=== PATIENT | male | born 1970 | race Caucasian/White ===

== ENCOUNTER 2017-09-02 10:19 | Emergency (ER) | payer BC, SELFPAY ==
[2017-09-02 10:56] LABS: Absolute Lymphocytes (CBC) 2.2 K/uL (0.7-4.9); Absolute Monocytes 0.7 K/uL (0.1-1.3); Absolute Neutrophil 6.1 K/uL (1.8-8.0); Basophils % 0.7 % (0-1.3); Eosinophils % 1.3 % (0-4.4); Hematocrit 47.7 % (39.6-49.0); Lymphocytes % 23.9 % (15.3-44.8); MCH 30.4 pg (27.0-35.0); MCV 87.3 fL (80-100); MPV 9.6 fL (7.6-11.3); Monocytes % 7.2 % (3.3-12.3); RBC Red Blood Cell Count 5.47 M/uL (4.33-5.43)
[2017-09-02] MEDS ORDERED: ASPIRIN 81 MG CHEWABLE TABLET ONE (11:02)
[2017-09-02] MEDS ORDERED: ONDANSETRON 4 MG/2 ML VIAL ONE (11:02)
[2017-09-02] MEDS ORDERED: MORPHINE 4 MG/ML SYR ONE (11:02)
[2017-09-02] MEDS ORDERED: NA CHLORIDE 0.9% 500 ML ONE ×2 (11:02→12:53)
[2017-09-02 11:03] LABS: Protime INR 0.97
--- NOTE | 2017-09-02 11:09 | RAD REPORT ---
EXAM DESCRIPTION: RAD - Chest Single View - 09/02/2017 10:53 am CLINICAL HISTORY: Chest pain. COMPARISON: None. FINDINGS: Portable technique limits examination quality. The lungs are grossly clear. The heart is mildly prominent size. No displaced fractures. IMPRESSION: No acute intrathoracic process suspected.
[2017-09-02 11:14] LABS: Potassium 3.8 mEq/L (3.6-5.0)
[2017-09-02 11:20] LABS: Albumin 4.6 g/dL (3.2-5.5); Bilirubin Direct 0.1 mg/dL (0-0.2); Magnesium 1.9 mg/dL (1.8-2.5)
[2017-09-02 11:23] LABS: CKMB Creatine Kinase MB 0.8 ng/ml (0.3-4.0)
--- NOTE | 2017-09-02 11:24 | EKG ---
Test Date: 2017-09-02 Test Time: 10:41:04 Steel Turner: DK MEASUREMENT RESULTS: Intervals: Rate: 53 KS: 158 QRSD: 110 QT: 408 QTc: 382 [place]: P: 45 KS: 158 QRS: 58 T: 65 INTERPRETIVE STATEMENTS: Sinus bradycardia with sinus arrhythmia Otherwise normal ECG Compared to ECG 01/24/2007 18:01:11 Sinus tachycardia no longer present Electronically Signed On 09-02-17 11:23:57 CDT by Damian Echeverria
--- NOTE | 2017-09-02 15:14 | EDPHYS ---
Physician Documentation [facility] Name: Scott Wells Age: 47 yrs Sex: Male : 1970 Arrival Date: 09/02/2017 Time: 10:22 Bed 17 Private MD: ED Philippe Christiansen HPI: 09/02 10:57 This 47 yrs old Male presents to ER via Ambulatory with complaints of Chest cp Pain. 10:57 The patient or guardian reports chest pain that is located primarily in the anterior cp chest wall, left. Onset: 2 day(s) ago. 10:57 The pain radiates to the left arm. Associated signs and symptoms: Pertinent negatives: cp abdominal pain, cough, diaphoresis, dizziness, headache, lower extremity pain, lower extremity swelling, palpitations, shortness of breath, syncope, vomiting. 10:57 The chest pain is described as squeezing. cp 10:57 Duration: The patient or guardian reports a single episode, that is still ongoing. cp Modifying factors: The symptoms are alleviated by nothing. the symptoms are aggravated by nothing. Historical: - Allergies: 10:27 Keflex; lk1 10:27 PENICILLINS; lk1 - Home Meds: 10:56 lisinopril 40 mg Oral tab 1 tab once daily [Active]; carvedilol 12.5 mg oral tab 1 tab jl7 2 times per day [Active]; - PMHx: 10:27 Hypertension; lk1 - PSHx: 10:27 Cholecystectomy; left hand; lymph node removed; lk1 - Immunization history:: Adult Immunizations up to date. - Social history:: Smoking status: Patient/guardian denies using tobacco. ROS: 11:00 Constitutional: Negative for body aches, chills, fever, poor PO intake. cp 11:00 Eyes: Negative for injury, pain, redness, and discharge, ENT: Negative for injury, cp pain, and discharge, Neck: Negative for injury, pain, and swelling. 11:00 Cardiovascular: Positive for chest pain, Negative for edema, palpitations. 11:00 Respiratory: Negative for cough, pleurisy, shortness of breath, wheezing. 11:00 Abdomen/GI: Negative for abdominal pain, nausea, vomiting, and diarrhea, constipation, anorexia, black/tarry stool, rectal bleeding. 11:00 Back: Negative for pain at rest, pain with movement, radiated pain. 11:00 Skin: Negative for cellulitis, rash. 11:00 Neuro: Negative for altered mental status, headache, loss of consciousness, syncope, near syncope, weakness. Exam: 10:45 ECG was reviewed by the Attending Physician. cp 11:05 Constitutional: The patient appears in no acute distress, alert, awake, cp non-diaphoretic, non-toxic, well developed, well nourished. 11:05 Head/Face: Normocephalic, atraumatic. Eyes: Pupils equal round and reactive to light, cp extra-ocular motions intact. Lids and lashes normal. Conjunctiva and sclera are non-icteric and not injected. Cornea within normal limits. Periorbital areas with no swelling, redness, or edema. ENT: Nares patent. No nasal discharge, no septal abnormalities noted. Tympanic membranes are normal and external auditory canals are clear. Oropharynx with no redness, swelling, or masses, exudates, or evidence of obstruction, uvula midline. Mucous membranes moist. Neck: Trachea midline, no thyromegaly or masses palpated, and no cervical lymphadenopathy. Supple, full range of motion without nuchal rigidity, or vertebral point tenderness. No Meningismus. Chest/axilla: Normal chest wall appearance and motion. Nontender with no deformity. No lesions are appreciated. 11:05 Cardiovascular: Rate: bradycardic, Rhythm: regular, Pulses: Pulses are 2+ in right radial artery and left radial artery. Heart sounds: murmur, not appreciated, Edema: is not appreciated, JVD: is not appreciated. 11:05 Respiratory: the patient does not display signs of respiratory distress, Respirations: normal, no use of accessory muscles, no retractions, no splinting, no tachypnea, labored breathing, is not present, Breath sounds: are clear throughout, no decreased breath sounds, no stridor, no wheezing. 11:05 Abdomen/GI: Inspection: obese Bowel sounds: active, all quadrants, Palpation: abdomen is soft and non-tender, in all quadrants, rebound tenderness, is not appreciated, voluntary guarding, is not appreciated, involuntary guarding, is not appreciated. 11:05 Back: pain, is absent, ROM is normal. 11:05 Skin: cellulitis, is not appreciated, no rash present. 11:05 Neuro: Orientation: to person, place \T\ time. Mentation: lucid, able to follow commands, Cerebellar function: is grossly normal, Motor: moves all fours, strength is normal, Sensation: no obvious gross deficits. 14:05 ECG was reviewed by the Attending Physician. cp Vital Signs: 10:28 BP 162 / 92; Pulse 55; Resp 15; Temp 98.0(O); Pulse Ox 96% on R/A; Weight 102.06 kg lk1 (M); Height 5 ft. 9 in. (175.26 cm) (R); Pain 7/10; 10:40 BP 188 / 97; Pulse 54; Resp 14 S; Pulse Ox 99% on R/A; Pain 7/10; jl7 11:09 BP 174 / 101 LA; dh3 11:09 BP 165 / 96 RA; dh3 11:34 BP 157 / 90; Pulse 48; Resp 16; Pulse Ox 96% on R/A; ae1 12:04 BP 157 / 99; Pulse 46; Resp 12 S; Pulse Ox 99% on R/A; jl7 12:43 BP 141 / 94; Pulse 46; Resp 13; Pulse Ox 99% on R/A; ap3 13:38 BP 159 / 101; Pulse 47; Resp 11; Pulse Ox 99% on R/A; ap3 15:03 BP 140 / 93; Pulse 63; Resp 16; Pulse Ox 99% on R/A; ae1 10:28 Body Mass Index 33.23 (102.06 kg, 175.26 cm) lk1 MDM: 10:33 Patient medically screened. cp 09/02 10:38 Order name: Basic Metabolic Panel; Complete Time: 11:24 cp 09/02 11:24 Interpretation: Normal except: GFR 76. cp 09/02 10:38 Order name: BNP; Complete Time: 11:24 cp 09/02 10:38 Order name: CBC with Diff; Complete Time: 11:24 cp 09/02 12:17 Interpretation: Normal except: RBC 5.47. cp 09/02 10:38 Order name: Ckmb; Complete Time: 11:24 cp 09/02 10:38 Order name: CPK; Complete Time: 11:24 cp 09/02 10:38 Order name: LFT's; Complete Time: 11:24 cp 09/02 11:24 Interpretation: Normal except: SGPT 62; ALK 38. cp 09/02 10:38 Order name: Magnesium; Complete Time: 11:24 cp 09/02 10:38 Order name: PT-INR; Complete Time: 11:24 cp 09/02 10:38 Order name: Ptt, Activated; Complete Time: 11:24 cp 09/02 10:38 Order name: Troponin (emerg Dept Use Only); Complete Time: 11:24 cp 09/02 12:18 Interpretation: Reviewed. cp 09/02 10:38 Order name: XRAY Chest (1 view); Complete Time: 11:24 cp 09/02 14:30 Interpretation: Report review. cp 09/02 11:26 Order name: D-Dimer; Complete Time: 11:55 cp 09/02 11:55 Interpretation: Reviewed. cp 09/02 13:06 Order name: Urine Dipstick--Ancillary (enter results) bd 09/02 13:44 Order name: Troponin I; Complete Time: 15:00 cp 09/02 15:00 Interpretation: Reviewed. cp 09/02 10:38 Order name: EKG; Complete Time: 10:39 cp 09/02 10:38 Order name: Cardiac monitoring; Complete Time: 10:43 cp 09/02 10:38 Order name: EKG - Nurse/Tech; Complete Time: 10:43 cp 09/02 10:38 Order name: IV Saline Lock; Complete Time: 10:43 cp 09/02 10:38 Order name: Labs collected and sent; Complete Time: 10:43 cp 09/02 10:38 Order name: O2 Per Protocol; Complete Time: 10:43 cp 09/02 10:38 Order name: O2 Sat Monitoring; Complete Time: 10:43 cp 09/02 10:38 Order name: Urine Dipstick-Ancillary (obtain specimen); Complete Time: 12:45 cp 09/02 10:58 Order name: Blood Pressure Recheck: bilateral upper extremities; Complete Time: 11:10 cp 09/02 13:44 Order name: EKG; Complete Time: 13:45 cp 09/02 13:44 Order name: EKG - Nurse/Tech; Complete Time: 14:00 cp EC:45 Rate is 53 beats/min. Rhythm is regular. OK interval is normal. QRS interval is cp prolonged at 110 msec. QT interval is normal. T waves are Flattened in lead aVL. No ST changes noted. Interpreted by me. Reviewed by me. 14:05 Rate is 53 beats/min. Rhythm is regular. OK interval is normal. QRS interval is cp prolonged at 102 msec. QT interval is normal. No ST changes noted. Interpreted by me. Reviewed by me. Administered Medications: 10:42 Drug: NS 0.9% 500 ml Route: IV; Rate: bolus; Site: right antecubital; jl7 11:30 Follow up: IV Status: Completed infusion jl7 10:43 Drug: Zofran 4 mg Route: IVP; Site: right antecubital; jl7 12:26 Follow up: Response: No adverse reaction ae1 10:46 Drug: morphine 2 mg Route: IVP; Site: right antecubital; jl7 12:26 Follow up: Response: Pain is decreased ae1 10:50 Drug: Aspirin Chewable Tablet 324 mg Route: PO; jl7 12:27 Follow up: Response: No adverse reaction ae1 12:45 Drug: NS 0.9% 500 ml Route: IV; Rate: bolus; Site: right antecubital; ae1 13:30 Follow up: IV Status: Completed infusion jl7 Disposition: 09/03 07:29 Co-signature as Attending Physician, Philippe Horvath MD I agree with the assessment and augusto plan of care. Disposition: 09/02/17 15:14 Discharged to Home. Impression: Chest pain, unspecified, Hypertensive heart disease. - Condition is Stable. - Discharge Instructions: Nonspecific Chest Pain, Hypertension, Aspirin and Your Heart. - Prescriptions for Norvasc 5 mg Oral Tablet - take 1 tablet by ORAL route once daily; 30 tablet. - Medication Reconciliation Form, Thank You Letter, Antibiotic Education, Prescription Opioid Use form. - Follow up: Private Physician; When: 2 - 3 days; Reason: Recheck today's complaints. - Problem is new. - Symptoms have improved. - Notes: stop carvedilol medication and start Norvasc 5 mg daily Signatures: Dispatcher [employer] EDPhilippe Iqbal MD MD cha Page, Corey, PA PA cp Kluge, Leah, RN RN lk1 Flaco Snyder RN RN ae1 Anita Cortez RN RN jl7
--- NOTE | 2017-09-02 15:14 | ER ---
Nurse's Notes [facility] Name: Scott Wells Age: 47 yrs Sex: Male : 1970 Arrival Date: 09/02/2017 Time: 10:22 Bed 17 Private MD: Diagnosis: Chest pain, unspecified;Hypertensive heart disease Presentation: 09/02 10:26 Presenting complaint: Patient states: I started having chest pains early Thursday morning lk1 (2 days ago). Transition of care: patient was not received from another setting of care. Onset of symptoms was August 31, 2017. Care prior to arrival: None. 10:26 Method Of Arrival: Ambulatory lk1 10:26 Acuity: NATALIE 3 lk1 Triage Assessment: 10:28 General: Appears uncomfortable, Behavior is calm, cooperative, appropriate for age. lk1 Pain: Complains of pain in diaphragm and left breast Pain radiates to left arm and neck Pain currently is 7 out of 10 on a pain scale. Cardiovascular: Capillary refill is brisk Patient's skin is warm and dry. Historical: - Allergies: 10:27 Keflex; lk1 10:27 PENICILLINS; lk1 - Home Meds: 10:56 lisinopril 40 mg Oral tab 1 tab once daily [Active]; carvedilol 12.5 mg oral tab 1 tab jl7 2 times per day [Active]; - PMHx: 10:27 Hypertension; lk1 - PSHx: 10:27 Cholecystectomy; left hand; lymph node removed; lk1 - Immunization history:: Adult Immunizations up to date. - Social history:: Smoking status: Patient/guardian denies using tobacco. Screenin:40 Abuse screen: Denies threats or abuse. Denies injuries from another. Nutritional jl7 screening: No deficits noted. Tuberculosis screening: No symptoms or risk factors identified. Fall Risk IV access (20 points). Total Snyder Fall Scale indicates No Risk (0-24 pts). Assessment: 10:40 General: Appears uncomfortable, Behavior is calm, cooperative, appropriate for age. jl7 Pain: Complains of pain in left breast Pain radiates to left arm Pain currently is 7 out of 10 on a pain scale. Quality of pain is described as squeezing, Pain began 2-3 days ago. Is continuous. Neuro: Level of Consciousness is awake, alert, obeys commands, Oriented to person, place, time, situation. Cardiovascular: Heart tones S1 S2 present Patient's skin is warm and dry. Respiratory: Airway is patent Respiratory effort is even, unlabored, Respiratory pattern is regular, symmetrical, Breath sounds are clear bilaterally. GI: No signs and/or symptoms were reported involving the gastrointestinal system. : No signs and/or symptoms were reported regarding the genitourinary system. EENT: No signs and/or symptoms were reported regarding the EENT system. Derm: Skin is pink, warm \\T\\ dry. Musculoskeletal: No signs and/or symptoms reported regarding the musculoskeletal system. 10:56 Reassessment: Pt states "I forgot to tell the provider but on Thursday it felt like I had jl7 something squeezing my throat, like someone was choking me. It doesn't feel like that now but it started when my chest pain started." Provider notified. 12:41 Reassessment: Patient is alert, oriented x 3, equal unlabored respirations, skin ap3 warm/dry/pink. family member at bedside. 13:38 Reassessment: updated patient on time line of care. ap3 13:46 Reassessment: Patient appears in no apparent distress at this time. Patient and/or ae1 family updated on plan of care and expected duration. Pain level reassessed. Patient is alert, oriented x 3, equal unlabored respirations, skin warm/dry/pink. 15:02 Reassessment: Provider at bedside discussing plan of care. ae1 Vital Signs: 10:28 BP 162 / 92; Pulse 55; Resp 15; Temp 98.0(O); Pulse Ox 96% on R/A; Weight 102.06 kg lk1 (M); Height 5 ft. 9 in. (175.26 cm) (R); Pain 7/10; 10:40 BP 188 / 97; Pulse 54; Resp 14 S; Pulse Ox 99% on R/A; Pain 7/10; jl7 11:09 BP 174 / 101 LA; dh3 11:09 BP 165 / 96 RA; dh3 11:34 BP 157 / 90; Pulse 48; Resp 16; Pulse Ox 96% on R/A; ae1 12:04 BP 157 / 99; Pulse 46; Resp 12 S; Pulse Ox 99% on R/A; jl7 12:43 BP 141 / 94; Pulse 46; Resp 13; Pulse Ox 99% on R/A; ap3 13:38 BP 159 / 101; Pulse 47; Resp 11; Pulse Ox 99% on R/A; ap3 15:03 BP 140 / 93; Pulse 63; Resp 16; Pulse Ox 99% on R/A; ae1 10:28 Body Mass Index 33.23 (102.06 kg, 175.26 cm) lk1 ED Course: 10:22 Patient arrived in ED. mr 10:27 Triage completed. lk1 10:28 Arm band placed on right wrist. lk1 10:32 Anita Cortez, JAVAN is Primary Nurse. jl7 10:32 Philippe Poon PA is PHCP. cp 10:32 Philippe Horvath MD is Attending Physician. cp 10:32 Audrey Amanda FNP-C is PHCP. kb 10:40 Patient has correct armband on for positive identification. Placed in gown. Bed in low jl7 position. Call light in reach. Side rails up X 1. shop service technician on. Pulse ox on. NIBP on. 10:40 Patient maintains SpO2 saturation greater than 95% on room air. jl7 10:42 Initial lab(s) drawn, by me, sent to lab. Inserted saline lock: 20 gauge in right dh3 antecubital area, using aseptic technique. Blood collected. 10:52 X-ray completed. Portable x-ray completed in exam room. Patient tolerated procedure la2 well. 10:52 EKG done, by plant technician. reviewed by Philippe EMMANUEL. vh 10:53 XRAY Chest (1 view) In Process Unspecified. EDMS 14:05 Troponin I Sent. ae1 14:25 EKG done, by plant technician. reviewed by Philippe EMMANUEL. at1 15:43 No provider procedures requiring assistance completed. IV discontinued, intact, ae1 bleeding controlled, No redness/swelling at site. Pressure dressing applied. Administered Medications: 10:42 Drug: NS 0.9% 500 ml Route: IV; Rate: bolus; Site: right antecubital; jl7 11:30 Follow up: IV Status: Completed infusion jl7 10:43 Drug: Zofran 4 mg Route: IVP; Site: right antecubital; jl7 12:26 Follow up: Response: No adverse reaction ae1 10:46 Drug: morphine 2 mg Route: IVP; Site: right antecubital; jl7 12:26 Follow up: Response: Pain is decreased ae1 10:50 Drug: Aspirin Chewable Tablet 324 mg Route: PO; jl7 12:27 Follow up: Response: No adverse reaction ae1 12:45 Drug: NS 0.9% 500 ml Route: IV; Rate: bolus; Site: right antecubital; ae1 13:30 Follow up: IV Status: Completed infusion jl7 Outcome: 15:14 Discharge ordered by . nicko 15:43 Attestation : I agree with the charting done by Christina Aguayo, vocational nursing instructor. . ae1 15:44 Discharged to home ambulatory, with family. ae1 15:44 Condition: stable 15:44 Discharge instructions given to patient, Instructed on discharge instructions, follow up and referral plans. medication usage, Demonstrated understanding of instructions, Prescriptions given X 1. 15:45 Patient left the ED. ae1 Signatures: Dispatcher [employer] EDMS Audrey Amanda, ELECTRONIC MASKING SYSTEM OPERATOR-C ELECTRONIC MASKING SYSTEM OPERATOR-Ckb Mary Fischer mr Christina dominguez, gas stove servicer helper EKG Tat1 Haylee Blair Corey, LIEN PA Leida Moreno RN RN lk1 Flaco Snyder RN RN ae1 Anita Cortez RN RN jl7 Yue Loera 3 Radha Landry va2 Christina Aguayo ap3
--- NOTE | 2017-09-02 15:50 | EKG ---
Test Date: 2017-09-02 Test Time: 13:56:38 Wastewater Plant Civil Engineer: ARABELLA MEASUREMENT RESULTS: Intervals: Rate: 53 CO: 170 QRSD: 102 QT: 428 QTc: 401 [place]: P: 57 CO: 170 QRS: 63 T: 66 INTERPRETIVE STATEMENTS: Sinus bradycardia with marked sinus arrhythmia Otherwise normal ECG Compared to ECG 09/02/2017 10:41:04 No significant changes Electronically Signed On 09-02-17 15:49:23 CDT by Damian Echeverria
[2017-09-02 15:58] LABS: Urine Blood NEGATIVE (NEG); Urine Glucose NEGATIVE (NEG); Urine Protein NEGATIVE (NEG); Urine pH 5.5 (5.0-7.0)
== END 2017-09-02 15:45 | disposition home or self-care (01) ==
LOC: ER 10:19
DX: I11.9 Hypertensive heart disease without heart failure (principal); I10 Essential (primary) hypertension; Z88.0 Allergy status to penicillin; Z88.1 Allergy status to other antibiotic agents
CPT/HCPCS: 36415; 71045; 80048; 80076; 81003; 82550; 82553; 83735; 83880; 84484; 85025; 85379; 85610; 85730; 93005; 96361; 96374; 96375; 99285; J2405

== ENCOUNTER 2019-03-24 12:25 | Emergency (ER) | payer SELFPAY ==
[2019-03-24] MEDS ORDERED: COLCHICINE 0.6 MG TAB ONE (13:31)
--- NOTE | 2019-03-24 13:59 | RAD REPORT ---
EXAM DESCRIPTION: RAD - Foot Right 3 View - 03/24/2019 1:42 pm CLINICAL HISTORY: Right foot pain and swelling COMPARISON: None. FINDINGS: No fracture, dislocation or periosteal reaction. No acute or destructive bone process. Pat ient has joint space narrowing at the first MTP joint. Articular surface of the first metatarsal head is flattened with mild spurring along the margin. No periarticular mass or calcification. Joints are otherwise without significant finding. Patient has moderate spurring at the Achilles attachment. The re is no plantar spur. No air or foreign body in the soft tissues. Soft tissues do appear thickened or edematous. No abnorma l soft tissue calcifications. IMPRESSION: Soft tissue swelling without focal soft tissue abnormality. First MTP joint degenerative change as detailed.
--- NOTE | 2019-03-24 14:12 | ER ---
Nurse's Notes [facility] Name: Scott Wells Age: 48 yrs Sex: Male : 1970 Arrival Date: 03/24/2019 Time: 12:27 Bed 20 Private MD: Unknown, Unknown Diagnosis: Pain in right foot Presentation: 03/24 12:40 Presenting complaint: Left foot pain and swelling x 3 days. Denies injury. Unable to hb bear weight. Transition of care: patient was not received from another setting of care. Onset of symptoms was March 21, 2019. Risk Assessment: Do you want to hurt yourself or someone else? Patient reports no desire to harm self or others. Initial Sepsis Screen: Does the patient meet any 2 criteria? No. Patient's initial sepsis screen is negative. Does the patient have a suspected source of infection? No. Patient's initial sepsis screen is negative. Care prior to arrival: None. 12:40 Method Of Arrival: Wheelchair hb 12:40 Acuity: NATALIE 4 hb Historical: - Allergies: 12:42 Keflex; hb 12:42 PENICILLINS; hb - Home Meds: 12:42 carvedilol 12.5 mg Oral tab 1 tab 2 times per day [Active]; lisinopril 40 mg Oral tab 1 hb tab once daily [Active]; - PMHx: 12:42 Hypertension; hb - PSHx: 12:42 left hand; lymph node removed; Cholecystectomy; hb - Immunization history:: Adult Immunizations up to date. - Social history:: Smoking status: Patient/guardian denies using tobacco. - Ebola Screening: : No symptoms or risks identified at this time. Screenin:48 Abuse screen: Denies threats or abuse. Denies injuries from another. Nutritional aj1 screening: No deficits noted. Tuberculosis screening: No symptoms or risk factors identified. 15:00 Fall Risk None identified. aj1 Assessment: 12:48 General: Appears in no apparent distress. uncomfortable, Behavior is calm, cooperative, aj1 appropriate for age. Pain: Complains of pain in left foot. Neuro: Level of Consciousness is awake, alert, obeys commands, Oriented to person, place, time, situation. Cardiovascular: Patient's skin is warm and dry. Respiratory: Airway is patent Respiratory effort is even, unlabored, Respiratory pattern is regular, symmetrical. GI: No signs and/or symptoms were reported involving the gastrointestinal system. : No signs and/or symptoms were reported regarding the genitourinary system. EENT: No signs and/or symptoms were reported regarding the EENT system. Derm: Skin is pink, warm \T\ dry. Musculoskeletal: Swelling present in left foot. 13:45 Reassessment: Patient appears in no apparent distress at this time. No changes from aj1 previously documented assessment. Patient and/or family updated on plan of care and expected duration. Pain level reassessed. Patient is alert, oriented x 3, equal unlabored respirations, skin warm/dry/pink. 14:45 Reassessment: Patient appears in no apparent distress at this time. No changes from aj1 previously documented assessment. Patient and/or family updated on plan of care and expected duration. Pain level reassessed. Patient is alert, oriented x 3, equal unlabored respirations, skin warm/dry/pink. Vital Signs: 12:42 BP 176 / 89; Pulse 74; Resp 18; Temp 97.9; Pulse Ox 100% ; Weight 127.01 kg; Height 5 hb ft. 9 in. (175.26 cm); Pain 10/10; 13:45 BP 134 / 88; Pulse 67; Resp 18; Pulse Ox 100% on R/A; aj1 14:45 BP 135 / 84; Pulse 65; Resp 17; Pulse Ox 99% on R/A; aj1 12:42 Body Mass Index 41.35 (127.01 kg, 175.26 cm) hb ED Course: 12:27 Patient arrived in ED. as 12:27 Unknown, Unknown is Private Physician. as 12:32 Audrey Amanda FNP-C is [facility]. kb 12:32 Jose De Jesus Laboy MD is Attending Physician. kb 12:41 Triage completed. hb 12:42 Arm band placed on. hb 12:43 Carina Louie, RN is Primary Nurse. aj1 12:48 Patient has correct armband on for positive identification. Bed in low position. Call aj1 light in reach. 12:48 No provider procedures requiring assistance completed. aj1 13:42 Foot Right 3 View XRAY In Process Unspecified. EDMS 14:57 Patient did not have IV access during this emergency room visit. aj1 Administered Medications: 13:36 Drug: colchicine 0.6 mg Route: PO; aj1 14:59 Follow up: Response: No adverse reaction aj1 Outcome: 14:11 Discharge ordered by MD. swift 14:59 Discharged to home ambulatory. aj1 14:59 Condition: good 14:59 Discharge instructions given to patient, Instructed on discharge instructions, follow up and referral plans. medication usage, Demonstrated understanding of instructions, follow-up care, medications, Prescriptions given X 2. 15:00 Patient left the ED. aj1 Signatures: Dispatcher [employer] EDAudrey Ramsey, STARLA SANFORD-Carina Noe, RN RN aj1 Cristela Alba as Marta Luther, RN RN
--- NOTE | 2019-03-24 14:13 | EDPHYS ---
Physician Documentation [facility] Name: Scott Wells Age: 48 yrs Sex: Male : 1970 Arrival Date: 03/24/2019 Time: 12:27 Bed 20 Private MD: Unknown, Unknown ED Physician Jose De Jesus Laboy HPI: 03/24 13:02 This 48 yrs old Male presents to ER via Wheelchair with complaints of Foot kb Pain. 13:03 The patient presents with pain, that is acute. The complaints affect the right foot. kb Context: The problem was sustained at home, resulted from an unknown cause, Mechanism of Injury: Unknown the patient is not able to bear weight, the patient is not able to ambulate. Onset: The symptoms/episode began/occurred 2 day(s) ago. Modifying factors: The symptoms are alleviated by nothing, the symptoms are aggravated by weight bearing. Associated signs and symptoms: The patient has no apparent associated signs or symptoms. Severity of symptoms: At their worst the symptoms were moderate, in the emergency department the symptoms are unchanged. The patient has not experienced similar symptoms in the past. The patient has not recently seen a physician. 13:06 Pt reports he started having right foot pain on Thursday that has progressively gotten kb worse. Now cannot put any weight on right foot. States he thinks his PCP said something about gout in the past when he had blood work done but isn't sure. Denies injury. Historical: - Allergies: 12:42 Keflex; hb 12:42 PENICILLINS; hb - Home Meds: 12:42 carvedilol 12.5 mg Oral tab 1 tab 2 times per day [Active]; lisinopril 40 mg Oral tab 1 hb tab once daily [Active]; - PMHx: 12:42 Hypertension; hb - PSHx: 12:42 left hand; lymph node removed; Cholecystectomy; hb - Immunization history:: Adult Immunizations up to date. - Social history:: Smoking status: Patient/guardian denies using tobacco. - Ebola Screening: : No symptoms or risks identified at this time. ROS: 12:59 Constitutional: Negative for fever, chills, and weight loss, ENT: Negative for injury, kb pain, and discharge, Neck: Negative for injury, pain, and swelling, Cardiovascular: Negative for chest pain, palpitations, and edema, Respiratory: Negative for shortness of breath, cough, wheezing, and pleuritic chest pain, Abdomen/GI: Negative for abdominal pain, nausea, vomiting, diarrhea, and constipation, Back: Negative for injury and pain, : Negative for injury, bleeding, discharge, and swelling, Skin: Negative for injury, rash, and discoloration, Neuro: Negative for headache, weakness, numbness, tingling, and seizure. 12:59 MS/extremity: Positive for pain, swelling, of the left foot. Exam: 13:00 Constitutional: This is a well developed, well nourished patient who is awake, alert, kb and in no acute distress. Head/Face: Normocephalic, atraumatic. ENT: Nares patent. No nasal discharge, no septal abnormalities noted. Tympanic membranes are normal and external auditory canals are clear. Oropharynx with no redness, swelling, or masses, exudates, or evidence of obstruction, uvula midline. Mucous membranes moist. Neck: Trachea midline, no thyromegaly or masses palpated, and no cervical lymphadenopathy. Supple, full range of motion without nuchal rigidity, or vertebral point tenderness. No Meningismus. Chest/axilla: Normal chest wall appearance and motion. Nontender with no deformity. No lesions are appreciated. Cardiovascular: Regular rate and rhythm with a normal S1 and S2. No gallops, murmurs, or rubs. Normal PMI, no JVD. No pulse deficits. Respiratory: Lungs have equal breath sounds bilaterally, clear to auscultation and percussion. No rales, rhonchi or wheezes noted. No increased work of breathing, no retractions or nasal flaring. Abdomen/GI: Soft, non-tender, with normal bowel sounds. No distension or tympany. No guarding or rebound. No evidence of tenderness throughout. Skin: Warm, dry with normal turgor. Normal color with no rashes, no lesions, and no evidence of cellulitis. Neuro: Awake and alert, GCS 15, oriented to person, place, time, and situation. Cranial nerves II-XII grossly intact. Motor strength 5/5 in all extremities. Sensory grossly intact. Cerebellar exam normal. Normal gait. 13:00 Musculoskeletal/extremity: Extremities: grossly normal except: noted in the left foot: pain, swelling, ROM: intact in all extremities, Circulation is intact in all extremities. Sensation intact. Weight bearing: is unable to bear weight. Vital Signs: 12:42 BP 176 / 89; Pulse 74; Resp 18; Temp 97.9; Pulse Ox 100% ; Weight 127.01 kg; Height 5 hb ft. 9 in. (175.26 cm); Pain 10/10; 13:45 BP 134 / 88; Pulse 67; Resp 18; Pulse Ox 100% on R/A; aj1 14:45 BP 135 / 84; Pulse 65; Resp 17; Pulse Ox 99% on R/A; aj1 12:42 Body Mass Index 41.35 (127.01 kg, 175.26 cm) hb MDM: 12:39 Patient medically screened. kb 13:00 Data reviewed: vital signs, nurses notes. Data interpreted: Pulse oximetry: on room air kb is 100 %. Interpretation: normal. Counseling: I had a detailed discussion with the patient and/or guardian regarding: the historical points, exam findings, and any diagnostic results supporting the discharge/admit diagnosis, radiology results, the need for outpatient follow up, a family practitioner, to return to the emergency department if symptoms worsen or persist or if there are any questions or concerns that arise at home. 03/24 12:51 Order name: Foot Right 3 View XRAY; Complete Time: 14:04 kb Administered Medications: 13:36 Drug: colchicine 0.6 mg Route: PO; aj1 14:59 Follow up: Response: No adverse reaction aj1 Disposition: 15:19 Co-signature as Attending Physician, Jose De Jesus Laboy MD I agree with the assessment and kdr plan of care. Disposition: 03/24/19 14:11 Discharged to Home. Impression: Pain in right foot. - Condition is Stable. - Discharge Instructions: Musculoskeletal Pain, Cellulitis, Adult, Dhhh-sw-Ocyw, Gout, Hvyk-sl-Fvxj. - Prescriptions for indomethacin 25 mg Oral capsule - take 1 capsule by ORAL route 3 times per day As needed with food; 30 capsule. Bactrim DS 800- 160 mg Oral Tablet - take 1 tablet by ORAL route every 12 hours for 7 days; 14 tablet. - Medication Reconciliation Form, Thank You Letter, Antibiotic Education, Prescription Opioid Use form. - Follow up: Emergency Department; When: As needed; Reason: Worsening of condition. Follow up: Private Physician; When: 2 - 3 days; Reason: Recheck today's complaints, Continuance of care, Re-evaluation by your physician. Signatures: Dispatcher [employer] EDAudrey Ramsey, JUVENAL-Lilly SANFORD-Carina Noe RN RN aj1 Jose De Jesus Laboy MD MD [facility] Marta Luther RN RN Corrections: (The following items were deleted from the chart) 15:00 14:11 03/24/2019 14:11 Discharged to Home. Impression: Pain in right foot. Condition is aj1 Stable. Forms are Medication Reconciliation Form, Thank You Letter, Antibiotic Education, Prescription Opioid Use. Follow up: Emergency Department; When: As needed; Reason: Worsening of condition. Follow up: Private Physician; When: 2 - 3 days; Reason: Recheck today's complaints, Continuance of care, Re-evaluation by your physician. kb
[2019-03-24 15:13] VITALS: TEMP 97.9
[2019-03-24 15:15] VITALS: BP 135/84; O2SAT 99
== END 2019-03-24 15:00 | disposition home or self-care (01) ==
LOC: ER 12:25
DX: M79.671 Pain in right foot (principal); I10 Essential (primary) hypertension; Z88.1 Allergy status to other antibiotic agents; Z88.0 Allergy status to penicillin
CPT/HCPCS: 99283

== ENCOUNTER 2019-12-20 09:37 | Emergency (ER) | payer SELFPAY ==
[2019-12-20] MEDS ORDERED: NA CHLORIDE 0.9% 1,000 ML ONE (10:15)
[2019-12-20 10:29] LABS: Absolute Lymphocytes (CBC) 1.5 K/uL (0.7-4.9); Basophils % 0.5 % (0-1.3); Hematocrit 44.4 % (39.6-49.0); MPV 9.6 fL (7.6-11.3); RBC Red Blood Cell Count 5.05 M/uL (4.33-5.43)
[2019-12-20 10:41] LABS: Albumin 4.1 g/dL (3.4-5.0); Bilirubin Direct 0.2 mg/dL (0-0.2); Bilirubin Total 0.7 mg/dL (0.2-1.0); Potassium 3.7 mmol/L (3.5-5.1)
--- NOTE | 2019-12-20 11:42 | RAD REPORT ---
EXAM DESCRIPTION: CT - Abdomen Pelvis W Contrast - 12/20/2019 11:24 am CLINICAL HISTORY: ABD PAIN COMPARISON: CT ABD PELVIS W CONTRAST dated 08/04/2009 TECHNIQUE: Biphasic, helical CT imaging of the abdomen and pelvis was performed following 100 ml non -ionic IV contrast. No oral contrast. All CT scans are performed using dose optimization technique as appropriate and may include automated exposure control or mA/KV adjustment according to patient size. FINDINGS: No suspicious findings in the lung bases. Patient has a diffuse fatty infiltration pattern that has progressed significantly from 2009 comparis on. No focal liver lesion. Cholecystectomy clips are present. No biliary tree dilatation. Spleen and pancreas show no suspicious findings. Symmetric renal function is seen with no hydronephrosis or suspicious renal mass. No pyelonephritis o r acute parenchymal process. Urinary bladder is mostly contracted. No gross abnormality seen. No pros arreola gland significant finding. No adrenal abnormalities. No gastric dilatation or wall thickening. Fluid is present in the lumen. No dilated small bowel loops . A few mildly prominent small bowel loops are present. No appendicitis findings. No colon wall thick ening, dilatation or mass identifiable. No colitis findings or active colon process evident. No free air, free fluid or inflammatory stranding. No hernia, mass or bulky lymphadenopathy. No suspicious bony findings. IMPRESSION: No wall thickening, mass or acute colon finding identifiable. A few small bowel loops a re prominent. This is a minimal finding. Nonspecific enteritis is possible. Patient has prominent, diffuse fatty infiltration of the liver progressive from 2009.
--- NOTE | 2019-12-20 11:54 | EDPHYS ---
Physician Documentation [facility] Name: Scott Wells Age: 49 yrs Sex: Male : 1970 Arrival Date: 12/20/2019 Time: 09:38 Bed 17 Private MD: ED Physician Burak Batista HPI: 12/19 12:26 This 49 yrs old Male presents to ER via Ambulatory with complaints of kb Diarrhea. 12:26 The patient has not experienced similar symptoms in the past. The patient has not kb recently seen a physician. Pt reports diarrhea that started 3 days ago. Reports nausea and abd cramping this morning. 12:27 The patient presents to the emergency department with diarrhea. Onset: The kb symptoms/episode began/occurred 3 day(s) ago. Possible causes: unknown. The symptoms are aggravated by nothing. The symptoms are alleviated by nothing. Associated signs and symptoms: Pertinent positives: abdominal pain, diarrhea, nausea, vomiting. Severity of symptoms: At their worst the symptoms were moderate in the emergency department the symptoms are unchanged. Historical: - Allergies: 09:52 Keflex; ca1 09:52 PENICILLINS; ca1 - PMHx: 09:52 Hypertension; ca1 - PSHx: 09:52 left hand; lymph node removed; Cholecystectomy; ca1 - Immunization history:: Adult Immunizations up to date. - Social history:: Smoking status: Patient denies any tobacco usage or history of. ROS: 12:29 Constitutional: Negative for fever, chills, and weight loss, Cardiovascular: Negative kb for chest pain, palpitations, and edema, Respiratory: Negative for shortness of breath, cough, wheezing, and pleuritic chest pain, Back: Negative for injury and pain, MS/Extremity: Negative for injury and deformity, Skin: Negative for injury, rash, and discoloration, Neuro: Negative for headache, weakness, numbness, tingling, and seizure. 12:29 Abdomen/GI: Positive for nausea, diarrhea, abdominal cramps. Exam: 12:28 Constitutional: This is a well developed, well nourished patient who is awake, alert, kb and in no acute distress. Head/Face: Normocephalic, atraumatic. Chest/axilla: Normal chest wall appearance and motion. Nontender with no deformity. No lesions are appreciated. Cardiovascular: Regular rate and rhythm with a normal S1 and S2. No gallops, murmurs, or rubs. Normal PMI, no JVD. No pulse deficits. Respiratory: Lungs have equal breath sounds bilaterally, clear to auscultation and percussion. No rales, rhonchi or wheezes noted. No increased work of breathing, no retractions or nasal flaring. Back: No spinal tenderness. No costovertebral tenderness. Full range of motion. Skin: Warm, dry with normal turgor. Normal color with no rashes, no lesions, and no evidence of cellulitis. MS/ Extremity: Pulses equal, no cyanosis. Neurovascular intact. Full, normal range of motion. Neuro: Awake and alert, GCS 15, oriented to person, place, time, and situation. Cranial nerves II-XII grossly intact. Motor strength 5/5 in all extremities. Sensory grossly intact. Cerebellar exam normal. Normal gait. 12:28 Abdomen/GI: Inspection: abdomen appears normal, Bowel sounds: normal, in all quadrants, Palpation: soft, in all quadrants, mild abdominal tenderness, in all quadrants. Vital Signs: 09:48 BP 159 / 142; Pulse 103; Resp 19 S; Temp 97.4(TE); Pulse Ox 99% on R/A; Weight 131.54 ca1 kg (R); Height 5 ft. 9 in. (175.26 cm) (R); Pain 4/10; 09:52 BP 145 / 107; ca1 10:16 BP 163 / 104; Pulse 102; Resp 18; Temp 97.8(O); Pulse Ox 98% on R/A; mh5 11:30 BP 148 / 87; Pulse 91; Resp 18; Temp 97.6; Pulse Ox 99% on R/A; ph 09:48 Body Mass Index 42.83 (131.54 kg, 175.26 cm) ca1 MDM: 09:53 Patient medically screened. kb 11:47 Data reviewed: vital signs, nurses notes. Data interpreted: Pulse oximetry: on room air kb is 98 %. Interpretation: normal. Counseling: I had a detailed discussion with the patient and/or guardian regarding: the historical points, exam findings, and any diagnostic results supporting the discharge/admit diagnosis, lab results, radiology results, the need for outpatient follow up, a family practitioner, to return to the emergency department if symptoms worsen or persist or if there are any questions or concerns that arise at home. 12/19 10:04 Order name: Lipase; Complete Time: 10:47 kb 12/19 10:04 Order name: Hepatic Function; Complete Time: 10:47 kb 12/19 10:04 Order name: Basic Metabolic Panel; Complete Time: 10:47 kb 12/19 10:04 Order name: CBC with Diff; Complete Time: 10:31 kb 12/19 10:47 Order name: CT Abd/Pelvis - IV Contrast Only; Complete Time: 11:46 kb 12/19 10:04 Order name: IV Saline Lock; Complete Time: 10:15 kb 12/19 10:04 Order name: Labs collected and sent; Complete Time: 10:15 kb Administered Medications: 10:15 Drug: NS 0.9% 1000 ml Route: IV; Rate: 1000 ml; Site: right antecubital; aa5 12:00 Follow up: Response: No adverse reaction; IV Status: Completed infusion; IV Intake: ph 1000ml Disposition: 13:28 Co-signature as Attending Physician, Burak Batista MD. rn Disposition: 12/20/19 11:53 Discharged to Home. Impression: Enteritis, Diarrhea, unspecified. - Condition is Stable. - Discharge Instructions: Food Choices to Help Relieve Diarrhea, Adult, Viral Gastroenteritis, Adult, Swff-iw-Darl, Diarrhea, Adult, Gxza-sl-Gncf. - Prescriptions for Bentyl 20 mg Oral Tablet - take 1 tablet by ORAL route every 6 hours As needed; 20 tablet. Zofran 4 mg Oral Tablet - take 1 tablet by ORAL route every 6 hours As needed; 20 tablet. - Medication Reconciliation Form, Thank You Letter, Antibiotic Education, Prescription Opioid Use, Work release form form. - Follow up: Emergency Department; When: As needed; Reason: Worsening of condition. Follow up: Private Physician; When: 2 - 3 days; Reason: Recheck today's complaints, Continuance of care, Re-evaluation by your physician. Signatures: Dispatcher [employer] EDWY Audrey Amanda, STARLA SANFORD-Burak Joseph MD MD rn Calderon, Audri RN RN aa5 Cande Moreira RN RN ph AcobZabrina RN RN ca1 Corrections: (The following items were deleted from the chart) 12:28 11:53 12/20/2019 11:53 Discharged to Home. Impression: Enteritis; Diarrhea, ph unspecified. Condition is Stable. Forms are Medication Reconciliation Form, Thank You Letter, Antibiotic Education, Prescription Opioid Use. Follow up: Emergency Department; When: As needed; Reason: Worsening of condition. Follow up: Private Physician; When: 2 - 3 days; Reason: Recheck today's complaints, Continuance of care, Re-evaluation by your physician. kb 12:28 12:26 Pt reports diarrhea that started 3 days ago. . kb kb
--- NOTE | 2019-12-20 11:54 | ER ---
Nurse's Notes [facility] Name: Scott Wells Age: 49 yrs Sex: Male : 1970 Arrival Date: 12/20/2019 Time: 09:38 Bed 17 Private MD: Diagnosis: Enteritis;Diarrhea, unspecified Presentation: 12/19 09:48 Chief complaint: Patient states: Diarrhea x 3 days. Reports cough x 7 days, nausea and ca1 abdominal pain. Denies vomiting. Coronavirus screen: Patient reports a cough. Patient denies shortness of breath or difficulty breathing. Patient denies measured and/or subjective temperature greater than 100.4F prior to today's visit. Patient denies travel on a cruise ship or to a country the [facility] currently lists as an affected area. Patient denies contact with known and/or suspected case of COVID-19. Proceed with normal triage. Ebola Screen: Patient negative for fever greater than or equal to 101.5 degrees Fahrenheit, and additional compatible Ebola Virus Disease symptoms Patient denies exposure to infectious person. Patient denies travel to an Ebola-affected area in the 21 days before illness onset. No symptoms or risks identified at this time. Initial Sepsis Screen: Does the patient meet any 2 criteria? No. Patient's initial sepsis screen is negative. Does the patient have a suspected source of infection? No. Patient's initial sepsis screen is negative. Risk Assessment: Do you want to hurt yourself or someone else? Patient reports no desire to harm self or others. Onset of symptoms was December 20, 2019. 09:48 Method Of Arrival: Ambulatory ca1 09:48 Acuity: NATALIE 3 ca1 Historical: - Allergies: 09:52 Keflex; ca1 09:52 PENICILLINS; ca1 - PMHx: 09:52 Hypertension; ca1 - PSHx: 09:52 left hand; lymph node removed; Cholecystectomy; ca1 - Immunization history:: Adult Immunizations up to date. - Social history:: Smoking status: Patient denies any tobacco usage or history of. Screenin:59 Abuse screen: Denies threats or abuse. Denies injuries from another. Nutritional ph screening: No deficits noted. Tuberculosis screening: No symptoms or risk factors identified. Fall Risk None identified. Assessment: 10:08 General: Appears uncomfortable, Behavior is calm, cooperative. Pain: Complains of pain aa5 in right upper quadrant, left upper quadrant, right lower quadrant and left lower quadrant Pain does not radiate. Pain currently is 4 out of 10 on a pain scale. Quality of pain is described as crampy, Is intermittent. Neuro: Level of Consciousness is awake, alert, obeys commands, Oriented to person, place, time, situation. Cardiovascular: Heart tones S1 S2 present Rhythm is regular. Respiratory: Airway is patent Respiratory effort is even, unlabored, Respiratory pattern is regular, symmetrical. GI: Abdomen is round obese, Bowel sounds present X 4 quads. Abd is soft X 4 quads Reports diarrhea, nausea, Patient currently denies vomiting. : No signs and/or symptoms were reported regarding the genitourinary system. EENT: No signs and/or symptoms were reported regarding the EENT system. Derm: Skin is pink, warm \T\ dry. Musculoskeletal: Range of motion: intact in all extremities. 10:11 Reassessment: Pt notified of wait time for lab results. . aa5 11:00 Reassessment: Patient appears in no apparent distress at this time. Patient and/or ph family updated on plan of care and expected duration. Pain level reassessed. Patient is alert, oriented x 3, equal unlabored respirations, skin warm/dry/pink. 12:00 Reassessment: Patient appears in no apparent distress at this time. Patient and/or ph family updated on plan of care and expected duration. Pain level reassessed. Patient is alert, oriented x 3, equal unlabored respirations, skin warm/dry/pink. Vital Signs: 09:48 BP 159 / 142; Pulse 103; Resp 19 S; Temp 97.4(TE); Pulse Ox 99% on R/A; Weight 131.54 ca1 kg (R); Height 5 ft. 9 in. (175.26 cm) (R); Pain 4/10; 09:52 BP 145 / 107; ca1 10:16 BP 163 / 104; Pulse 102; Resp 18; Temp 97.8(O); Pulse Ox 98% on R/A; mh5 11:30 BP 148 / 87; Pulse 91; Resp 18; Temp 97.6; Pulse Ox 99% on R/A; ph 09:48 Body Mass Index 42.83 (131.54 kg, 175.26 cm) ca1 ED Course: 09:38 Patient arrived in ED. ag5 09:51 Triage completed. ca1 09:52 Arm band placed on right wrist. ca1 09:53 Audrey Amanda F[facility]-C [facility]. kb 09:53 Burak Batista MD is Attending Physician. kb 09:58 Cande Moreira, RN is Primary Nurse. ph 10:08 Patient has correct armband on for positive identification. Placed in gown. Bed in low aa5 position. Call light in reach. Side rails up X 1. 10:10 Initial lab(s) drawn, by me, sent to lab. Inserted saline lock: 20 gauge in right aa5 antecubital area, using aseptic technique. Blood collected. 10:23 Warm blanket given. Pulse ox on. NIBP on. mh5 11:24 CT Abd/Pelvis - IV Contrast Only In Process Unspecified. EDMS 12:28 No provider procedures requiring assistance completed. IV discontinued, intact, ph bleeding controlled, No redness/swelling at site. Pressure dressing applied. Administered Medications: 10:15 Drug: NS 0.9% 1000 ml Route: IV; Rate: 1000 ml; Site: right antecubital; aa5 12:00 Follow up: Response: No adverse reaction; IV Status: Completed infusion; IV Intake: ph 1000ml Intake: 12:00 IV: 1000ml; Total: 1000ml. ph Outcome: 11:53 Discharge ordered by . kb 12:28 Patient left the ED. ph 12:28 Discharged to home ambulatory. ph 12:28 Condition: good 12:28 Discharge instructions given to patient, Instructed on discharge instructions, follow up and referral plans. medication usage, Demonstrated understanding of instructions, follow-up care, medications, Prescriptions given X 2. Signatures: Dispatcher [employer] EDKY Audrey Amanda FNP-C FNP-Ckb Calderon, Audri, RN RN [facility] Cande Moreira, Mary Diaz RN, ph [facility] Zabrina Prasad RN RN [facility] Iris Gaston [facility] Corrections: (The following items were deleted from the chart) 09:57 09:48 Chief complaint: Patient states: Diarrhea x 3 days. Reports nausea and abdominal ca1 pain. Denies vomiting. ca1
[2019-12-21 02:28] VITALS: BP 163/104; TEMP 97.8; O2SAT 98
== END 2019-12-20 12:28 | disposition home or self-care (01) ==
LOC: ER 09:37
DX: K52.9 Noninfective gastroenteritis and colitis, unspecified (principal); I10 Essential (primary) hypertension; Z88.0 Allergy status to penicillin; Z88.1 Allergy status to other antibiotic agents
CPT/HCPCS: 36415; 74177; 80048; 80076; 83690; 85025; 96360; 96361; 99284; J7030; Q9967

== ENCOUNTER 2021-05-27 19:33 | Inpatient (IN) | payer SELFPAY ==
[2021-05-27] MEDS ORDERED: NA CHLORIDE 0.9% 1,000 ML ONE (21:03)
[2021-05-27 21:11] LABS: Arterial Blood Carboxyhemoglob 1.3 % (0-1.5); Blood Gas Oxyhemoglobin 91.4 % (94-97); Blood O2 Saturation 93.6 % (92-98.5)
[2021-05-27 21:25] LABS: Hematocrit 42.3 % (39.6-49.0); Lymphocytes % 20.9 % (15.3-44.8); MPV 9.7 fL (7.6-11.3); RBC Red Blood Cell Count 4.88 M/uL (4.33-5.43)
[2021-05-27 21:29] LABS: Protime INR 1.04
[2021-05-27 21:42] LABS: ALT/SGPT 50 U/L (12-78); AST/SGOT 40 U/L (15-37); Albumin 2.9 g/dL (3.4-5.0); Alkaline Phosphatase 52 U/L (45-117); Amylase 42 U/L (25-115); BUN Blood Urea Nitrogen 14 mg/dL (7-18); Bicarbonate 23 mmol/L (21-32); Bilirubin Direct 0.2 mg/dL (0-0.2); Bilirubin Total 0.6 mg/dL (0.2-1.0); Creatine Phosphokinase 75 U/L (39-308); Glucose Level 178 mg/dL (74-106); Lipase 157 U/L (73-393); Protein, Total 7.2 g/dL (6.4-8.2); Sodium Level 135 mmol/L (136-145); Troponin (Emerg Dept Use Only) < 0.02 ng/mL (0.0-0.045)
--- NOTE | 2021-05-27 21:45 | RAD REPORT ---
EXAM DESCRIPTION: RAD - Chest Single View - 05/27/2021 9:00 pm CLINICAL HISTORY: Cough;Fever Chest pain. COMPARISON: Chest Single View dated 09/02/2017 FINDINGS: Portable technique limits examination quality. [id number] bilateral interstitial lung opacities are seen most compatible with pulmonary infect ion. The heart is normal in size. No displaced fractures.
[2021-05-27 21:52] LABS: CKMB Creatine Kinase MB < 1.0 ng/mL (1.0-3.6)
[2021-05-27 22:22] LABS: SARS-COV-2 RT PCR POSITIVE (NEGATIVE)
[2021-05-27] MEDS ORDERED: NA CHLORIDE 0.9% 2,000 ML ONE (23:53)
--- NOTE | 2021-05-27 23:57 | ER ---
Nurse's Notes [facility] Name: Scott Wells Age: 51 yrs Sex: Male : 1970 Arrival Date: 05/27/2021 Time: 19:37 Bed 16 Private MD: Diagnosis: Covid pneumonia. Sepsis. Hypotension. Near syncope Presentation: 05/27 20:27 Chief complaint: Patient states: Fever, cough, SOB, weak,. pale, near syncope since ll1 05/24. Coronavirus screen: Vaccine status: Patient reports being unvaccinated. Client denies travel out of the [place] in the last 14 days. cough unrelated to allergies, difficulty breathing, fatigue, fever, headache, muscle pain. Ebola Screen: Patient denies travel to an Ebola-affected area in the 21 days before illness onset. Initial Sepsis Screen: Does the patient meet any 2 criteria? RR > 20 per min. Systolic BP < 90 mmHg. Yes Does the patient have a suspected source of infection? Yes: Productive cough/pneumonia. Risk Assessment: Do you want to hurt yourself or someone else? Patient reports no desire to harm self or others. Onset of symptoms was May 24, 2021. 20:27 Method Of Arrival: Ambulatory ll1 20:27 Acuity: NATALIE 2 ll1 Historical: - Allergies: 20:27 PENICILLINS; ll1 20:27 Keflex; ll1 - PMHx: 20:27 Hypertension; ll1 - PSHx: 20:27 None; ll1 - Immunization history:: Client reports having NOT received the Covid vaccine. - Social history:: Smoking status: Patient denies any tobacco usage or history of. Vital Signs: 20:27 BP 75 / 50; Pulse 93; Resp 24; Temp 98.1; Pulse Ox 98% ; Weight 117.93 kg; Height 5 ft. ll1 9 in. (175.26 cm); Pain 10/10; 21:00 BP 90 / 52; Pulse 95; Resp 23; Pulse Ox 93% on R/A; oe 22:00 BP 93 / 59; Pulse 92; Resp 24; Pulse Ox 96% on R/A; oe 23:00 BP 88 / 55; Pulse 90; Resp 20; Pulse Ox 97% on R/A; oe 05/28 00:00 BP 89 / 67; Pulse 88; Resp 19; Pulse Ox 97% on R/A; oe 01:00 BP 107 / 77; Pulse 84; Resp 21; Pulse Ox 97% on R/A; oe 02:00 BP 120 / 69; Pulse 92; Resp 17; Pulse Ox 96% on R/A; oe 03:00 BP 112 / 74; Pulse 89; Resp 20; Pulse Ox 96% on R/A; oe 04:00 BP 126 / 98; Pulse 90; Resp 20; Pulse Ox 98% on R/A; oe 05:10 BP 129 / 72; Pulse 92; Resp 20; Pulse Ox 95% on R/A; oe 06:30 BP 113 / 76; Pulse 92; Resp 20; Pulse Ox 95% on R/A; oe 05/27 20:27 Body Mass Index 38.39 (117.93 kg, 175.26 cm) ll1 ED Course: 05/27 19:37 Patient arrived in ED. wm 20:26 Arm band placed on. ll1 20:29 Triage completed. ll1 20:35 Ok Mendiola MD is Attending Physician. pkl 21:00 Chest Single View XRAY In Process Unspecified. EDMS 21:10 Inserted saline lock: 20 gauge in right antecubital area, using aseptic technique. oe 21:11 COVID-19/FLU A+B (Document "Date of Onset" if Symptomatic) Sent. bb 22:21 Santiago Robles, JAVAN is Primary Nurse. sv1 22:50 CT Chest For PE Angio In Process Unspecified. EDMS 23:54 Virgilio Morocho is Hospitalizing Provider. pkl 05/28 05:52 Amylase, Serum Sent. sv1 05:53 Basic Metabolic Panel Sent. sv1 05:53 CBC with Diff Sent. sv1 05:53 CPK Sent. sv1 05:53 Ckmb Sent. sv1 05:53 LFT's Sent. sv1 05:54 Lactate Sent. sv1 05:54 Lipase Sent. sv1 05:54 Urine Microscopic Only Sent. sv1 Administered Medications: 05/27 21:11 Drug: NS 0.9% (30 ml/kg) 30 ml/kg Route: IV; Rate: bolus; Site: left antecubital; bb 05/28 00:05 Drug: NS 0.9% 1000 ml Route: IV; Rate: 125 ml/hr; Site: left antecubital; sv1 01:57 Follow up: Response: No adverse reaction sv1 00:05 Drug: NS 0.9% 1000 ml Route: IV; Rate: 1 bolus; Site: left antecubital; sv1 01:57 Follow up: IV Status: Completed infusion sv1 05:11 Follow up: IV Status: Completed infusion sv1 Outcome: 05/27 23:56 Decision to Hospitalize by Provider. pk 05/28 15:07 Patient left the ED. [facility] Signatures: Dispatcher [employer] EDOk Orlando MD MD pkl Patti Shah, RN RN Jorgito Brown Lynsay, RN RN ll1 Tiffani Looney Steven RN RN sv1
--- NOTE | 2021-05-27 23:57 | EDPHYS ---
Physician Documentation [facility] Name: Scott Wells Age: 51 yrs Sex: Male : 1970 Arrival Date: 05/27/2021 Time: 19:37 Bed 16 Private MD: ED Physician Ok Mendiola HPI: 05/27 20:47 This 51 yrs old Male presents to ER via Ambulatory with complaints of Fever, Cough. pkl 20:47 The patient or guardian reports cough, described as moderate, with no sputum, pkl difficulty breathing. Onset: The symptoms/episode began/occurred 3 day(s) ago. Associated signs and symptoms: Pertinent positives: weakness and near syncope. Historical: - Allergies: 20:27 PENICILLINS; ll1 20:27 Keflex; ll1 - PMHx: 20:27 Hypertension; ll1 - PSHx: 20:27 None; ll1 - Immunization history:: Client reports having NOT received the Covid vaccine. - Social history:: Smoking status: Patient denies any tobacco usage or history of. ROS: 20:47 Eyes: Negative for injury, pain, redness, and discharge, ENT: Negative for injury, pkl pain, and discharge, Neck: Negative for injury, pain, and swelling, Cardiovascular: Negative for chest pain, palpitations, and edema. 20:47 Respiratory: Positive for cough, with no reported sputum, shortness of breath. 20:47 Abdomen/GI: Negative for abdominal pain, nausea, vomiting, and diarrhea. 20:47 Back: Negative for acute changes. 20:47 : Negative for urinary symptoms. 20:47 MS/extremity: Negative for acute changes. 20:47 Skin: Negative for rash. 20:47 Neuro: Positive for near syncope, weakness. Exam: 20:47 Head/Face: Normocephalic, atraumatic. Eyes: Pupils equal round and reactive to light, pkl extra-ocular motions intact. Lids and lashes normal. Conjunctiva and sclera are non-icteric and not injected. Cornea within normal limits. Periorbital areas with no swelling, redness, or edema. ENT: Nares patent. No nasal discharge, no septal abnormalities noted. Tympanic membranes are normal and external auditory canals are clear. Oropharynx with no redness, swelling, or masses, exudates, or evidence of obstruction, uvula midline. Mucous membranes moist. Neck: Trachea midline, no thyromegaly or masses palpated, and no cervical lymphadenopathy. Supple, full range of motion without nuchal rigidity, or vertebral point tenderness. No Meningismus. Chest/axilla: Normal chest wall appearance and motion. Nontender with no deformity. No lesions are appreciated. Cardiovascular: Regular rate and rhythm with a normal S1 and S2. No gallops, murmurs, or rubs. Normal PMI, no JVD. No pulse deficits. Respiratory: Lungs have equal breath sounds bilaterally, clear to auscultation and percussion. No rales, rhonchi or wheezes noted. No increased work of breathing, no retractions or nasal flaring. Abdomen/GI: Soft, non-tender, with normal bowel sounds. No distension or tympany. No guarding or rebound. No evidence of tenderness throughout. Back: No spinal tenderness. No costovertebral tenderness. Full range of motion. Skin: Warm, dry with normal turgor. Normal color with no rashes, no lesions, and no evidence of cellulitis. MS/ Extremity: Pulses equal, no cyanosis. Neurovascular intact. Full, normal range of motion. Neuro: Awake and alert, GCS 15, oriented to person, place, time, and situation. Cranial nerves II-XII grossly intact. Motor strength 5/5 in all extremities. Sensory grossly intact. Cerebellar exam normal. Normal gait. Vital Signs: 20:27 BP 75 / 50; Pulse 93; Resp 24; Temp 98.1; Pulse Ox 98% ; Weight 117.93 kg; Height 5 ft. ll1 9 in. (175.26 cm); Pain 10/10; 21:00 BP 90 / 52; Pulse 95; Resp 23; Pulse Ox 93% on R/A; oe 22:00 BP 93 / 59; Pulse 92; Resp 24; Pulse Ox 96% on R/A; oe 23:00 BP 88 / 55; Pulse 90; Resp 20; Pulse Ox 97% on R/A; oe 05/28 00:00 BP 89 / 67; Pulse 88; Resp 19; Pulse Ox 97% on R/A; oe 01:00 BP 107 / 77; Pulse 84; Resp 21; Pulse Ox 97% on R/A; oe 02:00 BP 120 / 69; Pulse 92; Resp 17; Pulse Ox 96% on R/A; oe 03:00 BP 112 / 74; Pulse 89; Resp 20; Pulse Ox 96% on R/A; oe 04:00 BP 126 / 98; Pulse 90; Resp 20; Pulse Ox 98% on R/A; oe 05:10 BP 129 / 72; Pulse 92; Resp 20; Pulse Ox 95% on R/A; oe 06:30 BP 113 / 76; Pulse 92; Resp 20; Pulse Ox 95% on R/A; oe 05/27 20:27 Body Mass Index 38.39 (117.93 kg, 175.26 cm) ll1 MDM: 05/27 20:35 Patient medically screened. pkl 23:53 Data reviewed: vital signs, nurses notes, lab test result(s), EKG, radiologic studies, pkl CT scan, plain films. ED course: Talked to Ruperto EMMANUEL ) Admit to Dr. Morocho. 05/27 20:40 Order name: Amylase, Serum pkl 05/27 20:40 Order name: Basic Metabolic Panel pkl 05/27 20:40 Order name: Blood Culture Adult (2) pkl 05/27 20:40 Order name: CBC with Diff pkl 05/27 20:40 Order name: CPK pkl 05/27 20:40 Order name: Ckmb pkl 05/27 20:40 Order name: LFT's pkl 05/27 20:40 Order name: Lactate pkl 05/27 20:40 Order name: Lipase pkl 05/27 20:40 Order name: Procalcitonin; Complete Time: 22:13 pkl 05/27 20:40 Order name: Protime (+inr); Complete Time: 21:30 pkl 05/27 20:40 Order name: Ptt, Activated; Complete Time: 21:30 pkl 05/27 20:40 Order name: Troponin (emerg Dept Use Only); Complete Time: 22:13 pkl 05/27 20:40 Order name: Urine Microscopic Only pkl 05/27 20:41 Order name: Amylase; Complete Time: 22:13 EDMS 05/27 20:41 Order name: Basic Metabolic Panel; Complete Time: 22:13 EDMS 05/27 20:41 Order name: Blood Culture EDMS 05/27 20:41 Order name: CBC with Automated Diff; Complete Time: 21:27 EDAR 05/27 20:41 Order name: Creatine Phosphokinase; Complete Time: 22:13 EDMS 05/27 20:41 Order name: CKMB Creatine Kinase MB; Complete Time: 22:13 EDAR 05/27 20:41 Order name: Liver (Hepatic) Function; Complete Time: 22:13 EDAR 05/27 20:41 Order name: Lactate; Complete Time: 21:41 EDAR 05/27 20:41 Order name: Lipase; Complete Time: 22:13 EDAR 05/27 20:45 Order name: COVID-19/FLU A+B (Document "Date of Onset" if Symptomatic) pk 05/27 20:45 Order name: COVID-19/FLU A+B; Complete Time: 22:37 EDAR 05/27 20:50 Order name: ABG; Complete Time: 21:20 [facility] 05/28 08:55 Order name: CBC with Automated Diff EDAR 05/28 09:26 Order name: Comprehensive Metabolic Panel EDAR 05/28 09:26 Order name: C-Reactive Protein EDAR 05/28 09:26 Order name: Ferritin EDAR 05/27 20:40 Order name: Chest Single View XRAY; Complete Time: 22:13 [facility] 05/27 20:40 Order name: Accucheck; Complete Time: 21:11 [facility] 05/27 20:40 Order name: Cardiac monitoring; Complete Time: 21:11 [facility] 05/27 20:40 Order name: EKG - Nurse/Tech; Complete Time: 00:40 [facility] 05/27 20:40 Order name: IV Saline Lock - Large Bore; Complete Time: 21:11 [facility] 05/27 20:40 Order name: Labs collected and sent; Complete Time: 21:11 [facility] 05/27 20:40 Order name: O2 Per Protocol; Complete Time: 21:11 [facility] 05/27 20:40 Order name: O2 Sat Monitoring; Complete Time: 21:11 [facility] 05/27 22:14 Order name: CT Chest For PE Angio [facility] 05/28 00:52 Order name: CONS Physician Consult; Complete Time: 02:13 EDMS 05/28 09:26 Order name: CBC Smear Scan EDAR 05/28 09:32 Order name: Procalcitonin EDAR 05/28 12:34 Order name: Glucose, Ancillary Testing EDMS Administered Medications: 21:11 Drug: NS 0.9% (30 ml/kg) 30 ml/kg Route: IV; Rate: bolus; Site: left antecubital; bb 05/28 00:05 Drug: NS 0.9% 1000 ml Route: IV; Rate: 125 ml/hr; Site: left antecubital; sv1 01:57 Follow up: Response: No adverse reaction sv1 00:05 Drug: NS 0.9% 1000 ml Route: IV; Rate: 1 bolus; Site: left antecubital; sv1 01:57 Follow up: IV Status: Completed infusion sv1 05:11 Follow up: IV Status: Completed infusion sv1 Disposition Summary: 05/27/21 23:56 Hospitalization Ordered Hospitalization Status: Inpatient Admission pkl Provider: Virgilio Morocho Location: Telemetry/MedSurg (Inpatient) pkl Condition: Stable pkl Problem: new pkl Symptoms: are unchanged pkl Bed/Room Type: Standard pkl Room Assignment: pkl Diagnosis - Covid pneumonia. Sepsis. Hypotension. Near syncope pkl Forms: - Medication Reconciliation Form pkl - SBAR form pkl Signatures: Dispatcher [employer] EDOk Orlando MD MD pkl Patti Shah RN RN Jazmin Fournier RN RN ll1 Santiago Robles RN RN sv1
--- NOTE | 2021-05-28 01:16 | P.HP ---
Certification for Inpatient Patient admitted to: Inpatient With expected LOS: >2 Midnights Patient will require the following post-hospital care: None Practitioner: I am a practitioner with admitting privileges, knowledge of patient current condition, hospital course, and medical plan of care. Services: Services provided to patient in accordance with Admission requirements found in Title 42 Section 412.3 of the Code of Federal Regulations Patient History Date of Service: 05/28/21 Primary Care Provider: Claude Reason for admission: covid pneumonia History of Present Illness: Mr. Wells is a 51 yo M with HTN who presents with one week of flu-like symptoms. He thought his symptoms were improving until 05/24 when he felt markedly worse. He reports fever, cough productive of green sputum, SOB, ROBLES, wheezing, nausea and diarrhea. Today he felt weaker and when he tried to ambulate he felt like he was going to pass out. His blood pressure upon arrival was 75/50. He took both of his blood pressure medications just prior to arrival. He says he has been eating and drinking, although less than usual because it is exhausting. COVID test is positive in the ED. Plt 100 Cr 1.45 GFR 52 Glu 178 procal 0.09. CTPE shows no evidence of pulmonary embolism. CXR FINDINGS: [id number] bilateral interstitial lung opacities are seen most compatible with pulmonary infection. The heart is normal in size. No displaced fractures. Allergies cephalexin [From Keflex] Allergy (Unverified 09/02/17 15:50) Unknown Penicillins Allergy (Unverified 09/02/17 15:50) Unknown - Past Medical/Surgical History Diabetic: No -: HTN -: neck surgery -: hand surgery -: eboni - Family History Family History: Reviewed- Non-Contributory - Social History Smoking Status: Never smoker Alcohol use: No CD- Drugs: No Caffeine use: No Place of Residence: Home Review of Systems 10-point ROS is otherwise unremarkable General: Fever, Chills, Sweats, Weakness, Malaise Eyes: Unremarkable ENT: Unremarkable Respiratory: Cough, Shortness of Breath, SOB with Excertion, Sputum, Wheezing, As per HPI Cardiovascular: Light Headedness, As per HPI Gastrointestinal: Nausea, As per HPI Genitourinary: Unremarkable Musculoskeletal: Unremarkable Integumentary: Unremarkable Neurological: Unremarkable Lymphatics: Unremarkable Physical Examination - Physical Exam General: Alert, In no apparent distress HEENT: Atraumatic, PERRLA, Mucous membr. moist/pink, EOMI, Sclerae nonicteric Neck: Supple, 2+ carotid pulse no bruit, No LAD, Without JVD or thyroid abnormality Respiratory: Diminished Cardiovascular: Regular rate/rhythm, Normal S1 S2 Gastrointestinal: Normal bowel sounds, No tenderness Musculoskeletal: No tenderness Integumentary: No rashes Neurological: Normal speech, Normal strength at 5/5 x4 extr, Normal tone, Normal affect Lymphatics: No axilla or inguinal lymphadenopathy - Studies Laboratory Data (last 24 hrs) 05/27/21 20:50: PT 12.0, INR 1.04, APTT 32.8 05/27/21 20:50: WBC 4.90, Hgb 14.4, Hct 42.3, Plt Count 100 L 05/27/21 20:50: Sodium 135 L, Potassium 4.0, BUN 14, Creatinine 1.45 H, Glucose 178 H, Total Bilirubin 0.6, AST 40 H, ALT 50, Alkaline Phosphatase 52, Amylase 42, Lipase 157 Assessment and Plan - Problems (Diagnosis) (1) Pneumonia due to COVID-19 virus Current Visit: Yes Status: Acute (2) Hypotension Current Visit: Yes Status: Acute Qualifiers: Hypotension type: unspecified hypotension type Qualified Code(s): I95.9 - Hypotension, unspecified (3) DAGO (acute kidney injury) Current Visit: Yes Status: Acute - Plan pulm consulted continue covid supplements, steroids, antitussives O2 as needed daily CRP, ferritin, procalcitonin continue IV fluid hydration hold home BP medications until BP improves A1c pending, continue sliding scale and accuchecks DVT ppx Discharge Plan: Home Plan to discharge in: 72 Hours - Advance Directives Does patient have a Living Will: No Does patient have a Durable POA for Healthcare: No - Code Status/Comfort Care Code Status Assessed: Yes (full code ) Critical Care: No Time Spent Managing Pts Care (In Minutes): 70
[2021-05-28] MEDS ORDERED: MELATONIN 5 MG TABLET PO PRN (07:55)
[2021-05-28] MEDS ORDERED: NA CHLORIDE 0.9% 1,000 ML IV SCH (07:55)
[2021-05-28] MEDS: INSULIN -REGULAR HUMAN 50 UNIT/0.5 ML ML SQ SCH ×2 (07:55→11:30)
[2021-05-28] MEDS ORDERED: ACETAMINOPHEN 500 MG TAB PO PRN (07:55)
[2021-05-28] MEDS ORDERED: BENZONATATE 100 MG CAP PO PRN (07:55)
[2021-05-28] MEDS ORDERED: ONDANSETRON 4 MG/2 ML VIAL IV PRN (07:55)
[2021-05-28] MEDS: METHYLPREDNISOLONE 125 MG INJ IV SCH ×2 (07:55→09:00)
--- NOTE | 2021-05-28 08:28 | P.CNS ---
Date of Consult: 05/28/21 Primary Care Provider: Claude Chief Complaint: covid pneumonia History of Present Illness: Patient is 51 years of age with a history of hypertension admitted with coronavirus pneumonia is doing well and his blood pressure was little low on arrival is now stable Allergies cephalexin [From Keflex] Allergy (Unverified 09/02/17 15:50) Unknown Penicillins Allergy (Unverified 09/02/17 15:50) Unknown - Past Medical/Surgical History Diabetic: No -: HTN -: neck surgery -: hand surgery -: eboni - Social History Alcohol use: No CD- Drugs: No Caffeine use: No Place of Residence: Home Review of Systems General: Weakness Respiratory: Cough, Shortness of Breath Physical Examination Laboratory Data (last 24 hrs) 05/27/21 20:50: PT 12.0, INR 1.04, APTT 32.8 05/27/21 20:50: WBC 4.90, Hgb 14.4, Hct 42.3, Plt Count 100 L 05/27/21 20:50: Sodium 135 L, Potassium 4.0, BUN 14, Creatinine 1.45 H, Glucose 178 H, Total Bilirubin 0.6, AST 40 H, ALT 50, Alkaline Phosphatase 52, Amylase 42, Lipase 157 - Problems (1) Pneumonia due to COVID-19 virus Current Visit: Yes Status: Acute Plan: Patient is 51 years patient is 51 years of age admitted with pneumonia due to coronavirus he is currently stable vital signs are all satisfactory chest x-ray shows some minor interstitial changes room air sat is satisfactory mild decrease mild decrease in white count his renal function is improved plan to discharge on Decadron 2 mg twice a day for a week low-dose aspirin
[2021-05-28 08:44] VITALS: O2SAT 94
[2021-05-28 08:53] LABS: Absolute Lymphocytes (CBC) 0.7 K/uL (0.7-4.9); Hematocrit 37.3 % (39.6-49.0); Lymphocytes % 20.3 % (15.3-44.8); MPV 9.3 fL (7.6-11.3)
[2021-05-28 08:55] VITALS: BMI 38.0
[2021-05-28] MEDS ORDERED: THIAMINE HCL 100 MG TABLET PO SCH (09:00)
[2021-05-28] MEDS ORDERED: VITAMIN D 1000 UNIT TAB PO SCH (09:00)
[2021-05-28] MEDS: ASCORBIC ACID 500 MG TABLET PO SCH ×2 (09:00→12:28)
[2021-05-28] MEDS ORDERED: FAMOTIDINE 20 MG TAB PO SCH (09:00)
[2021-05-28] MEDS ORDERED: ZINC SULFATE 220 MG CAP PO SCH (09:00)
[2021-05-28 09:11] LABS: Albumin 2.7 g/dL (3.4-5.0); Bilirubin Total 0.5 mg/dL (0.2-1.0); C-Reactive Protein 58.4 mg/L (<3.00); Ferritin 617.7 ng/mL (26-388); Potassium 4.1 mmol/L (3.5-5.1); Protein, Total 6.4 g/dL (6.4-8.2)
[2021-05-28] MEDS ORDERED: VITAMIN D 1000 UNIT TAB ONE (09:19)
[2021-05-28] MEDS ORDERED: ASCORBIC ACID 500 MG TABLET ONE (09:19)
[2021-05-28] MEDS ORDERED: ZINC SULFATE 220 MG CAP ONE (09:19)
[2021-05-28] MEDS ORDERED: METHYLPREDNISOLONE 40 MG INJ ONE (09:20)
[2021-05-28] MEDS ORDERED: NA CHLORIDE 0.9% 1,000 ML ONE (09:20)
[2021-05-28] MEDS ORDERED: FAMOTIDINE 20 MG TAB ONE (09:20)
[2021-05-28 09:26] LABS: Blood Morphology Comment NOT SEEN (NOT SEEN); Platelet Estimate DECR; White Blood Cell Scan OK (OK)
--- NOTE | 2021-05-28 11:26 | RAD REPORT ---
EXAM DESCRIPTION: Chest For Pe Angio RadLex: CT CHEST ANGIOGRAPHY WITH IV CONTRAST CLINICAL HISTORY: Cough;Dyspnea. COMPARISON: None. TECHNIQUE: CTA of the chest was performed following intravenous administration of iodinated contrast . Axial soft tissue and lung window, and coronal and sagittal soft tissue window reconstructions were created and sent to PACS. 3D postprocessing was performed on an independent workstation, with images sent to PACS for subsequen t review. This exam was performed according to our departmental dose-optimization program, which includes autom ated exposure control, adjustment of the mA and/or kV according to patient size and/or use of iterati ve reconstruction technique. FINDINGS: Mild motion degradation. Vascular: The pulmonary arteries are well-opacified to the segmental level. There is motion degradati on in the region of the subsegmental branches. No CT evidence of acute pulmonary thromboembolism. No evidence of aortic aneurysm or dissection. Lungs and pleura: Multiple small regions of groundglass opacification and interstitial thickening thr oughout the lungs. No pleural effusion. No pneumothorax. Mediastinum and neck: Minimally prominent mediastinal lymph nodes. Unremarkable appearance of the thy roid gland. Cardiac: No cardiomegaly or pericardial effusion. Abdomen: Mild hepatic steatosis. Cholecystectomy. Musculoskeletal: No concerning osseous abnormality. IMPRESSION: 1. No CTA evidence of acute pulmonary thromboembolism. 2. Multiple small regions of groundglass opacification and interstitial thickening, as can be seen with viral pneumonia. 3. Minimally prominent mediastinal lymph nodes, likely reactive. 4. Mild hepatic steatosis. Electronically signed by: Hilda Gonzlaez MD 05/27/2021 11:22 PM DECAL CUTTER Due to temporary technical issues with the PACS/Fluency reporting system, reports are being signed by the in house radiologist without review as a courtesy to ensure prompt reporting. The interpreting r adiologist is fully responsible for the content of the report.
[2021-05-28 12:41] VITALS: BP 114/76; TEMP 97.8
--- NOTE | 2021-05-28 13:57 | P.DS ---
Admission Date: 05/28/21 Discharge Date: 05/28/21 Primary Care Provider: Claude Disposition: ROUTINE DISCHARGE Discharge Condition: FAIR Reason for Admission: covid pneumonia - Problems (1) Pneumonia due to COVID-19 virus Current Visit: Yes Status: Acute (2) DAGO (acute kidney injury) Current Visit: Yes Status: Acute (3) Hypotension Current Visit: Yes Status: Acute Qualifiers: Hypotension type: unspecified hypotension type Qualified Code(s): I95.9 - Hypotension, unspecified Brief History of Present Illness: Mr. Wells is a 51 yo M with HTN who presented with one week of flu-like symptoms. He thought his symptoms were improving until 05/24 when he felt worse. He reported fever, cough productive of green sputum, SOB, ROBLES, wheezing, nausea and diarrhea. He felt like he was going to pass out and therefore presented to the ED. His blood pressure upon arrival was 75/50. He took both of his blood pressure medications just prior to arrival. COVID test positive in the ED. Plt 100 Cr 1.45 GFR 52 Glu 178 procal 0.09. CTPE shows no evidence of pulmonary embolism. Chest x-ray report [id number] bilateral interstitial lung opacities are seen most compatible with pulmonary infection. Patient was stable on room air. He was hospitalized for further management Hospital Course: Patient admitted to the medical floor and started on treatment for Covid pneumonia with IV steroid, vitamin supplementation and zinc supplementation. He did not require oxygen. His oxygen saturation was stable on room air. Patient was seen in consultation by pulmonary-Dr. Florence who recommended discharge with oral dexamethasone. Patient blood pressure has improved and vitals stable. He is discharged with dexamethasone vitamins and zinc supplementation. He is informed to return to the ED should he experience shortness of breath even at rest. Vital Signs/Physical Exam: Temp Pulse Resp BP Pulse Ox 97.8 F 93 H 114/76 95 05/28/21 12:00 05/28/21 12:00 05/28/21 12:00 05/28/21 12:00 General: Alert, In no apparent distress, Oriented x3 HEENT: Mucous membr. moist/pink Neck: JVD not distended Respiratory: Other (Nonlabored breathing) Cardiovascular: No edema, Regular rate/rhythm, Normal S1 S2 Gastrointestinal: Soft and benign, Non-distended Musculoskeletal: No swelling Integumentary: No erythema, No cyanosis Neurological: Normal strength at 5/5 x4 extr Laboratory Data at Discharge: WBC 3.50 K/uL (4.3-10.9) L D 05/28/21 08:20 Hgb 12.9 g/dL (13.6-17.9) L 05/28/21 08:20 Hct 37.3 % (39.6-49.0) L 05/28/21 08:20 Plt Count 85 K/uL (152-406) L 05/28/21 08:20 PT 12.0 SECONDS (9.5-12.5) 05/27/21 20:50 INR 1.04 05/27/21 20:50 APTT 32.8 SECONDS (24.3-36.9) 05/27/21 20:50 Sodium 139 mmol/L (136-145) 05/28/21 08:20 Potassium 4.1 mmol/L (3.5-5.1) 05/28/21 08:20 BUN 11 mg/dL (7-18) 05/28/21 08:20 Creatinine 1.00 mg/dL (0.55-1.3) 05/28/21 08:20 Glucose 112 mg/dL (74-106) H 05/28/21 08:20 Total Bilirubin 0.5 mg/dL (0.2-1.0) 05/28/21 08:20 AST 37 U/L (15-37) 05/28/21 08:20 ALT 45 U/L (12-78) 05/28/21 08:20 Alkaline Phosphatase 45 U/L (45-117) 05/28/21 08:20 Amylase 42 U/L (25-115) 05/27/21 20:50 Lipase 157 U/L (73-393) 05/27/21 20:50 Home Medications: Ascorbic Acid [C-1000] 1,000 mg PO BID #60 tablet 05/28/21 Aspirin [Aspirin EC] 81 mg PO DAILY #30 tablet.dr 05/28/21 Benzonatate [Tessalon Perle*] 100 mg PO TID PRN #30 cap 05/28/21 Cholecalciferol (Vitamin D3) [Vitamin D 1000 Iu Tab*] 4,000 unit PO DAILY #120 tab 05/28/21 Famotidine [Pepcid*] 40 mg PO BID #30 tab 05/28/21 Thiamine HCl [Vitamin B-1*] 200 mg PO DAILY #60 tablet 05/28/21 Zinc Sulfate [Zinc Sulfate*] 220 mg PO DAILY #30 cap 05/28/21 dexAMETHasone [Dexamethasone] 2 mg PO BID #14 tablet 05/28/21 New Medications: Aspirin [Aspirin EC] 81 mg PO DAILY #30 tablet. Ascorbic Acid [C-1000] 1,000 mg PO BID #60 tablet dexAMETHasone [Dexamethasone] 2 mg PO BID #14 tablet Famotidine [Pepcid*] 40 mg PO BID #30 tab Benzonatate [Tessalon Perle*] 100 mg PO TID PRN #30 cap PRN Reason: Cough Thiamine HCl [Vitamin B-1*] 200 mg PO DAILY #60 tablet Cholecalciferol (Vitamin D3) [Vitamin D 1000 Iu Tab*] 4,000 unit PO DAILY #120 tab Zinc Sulfate [Zinc Sulfate*] 220 mg PO DAILY #30 cap Physician Discharge Instructions: Please return to the emergency department if you are feeling more short of breath especially at rest. Diet: Regular Activity: Ad arnoldo Followup: NONE,NONE [Primary Care Provider] - 1-2 Weeks Ramon Singh MD [ACTIVE - CAN ADMIT] - 1 Week Time spent managing pt's care (in minutes): 33
== END 2021-05-28 14:40 | disposition home or self-care (01) | DRG 871 ==
LOC: ER 19:33 → ERHOLD 05-28 01:10
PROVIDERS: ADMIT Internal Medicine; ATTEND Internal Medicine
DX: A41.89 Other specified sepsis (principal); U07.1 COVID-19; J12.82 Pneumonia due to coronavirus disease 2019; N17.9 Acute kidney failure, unspecified; I10 Essential (primary) hypertension; Z88.0 Allergy status to penicillin; Z88.1 Allergy status to other antibiotic agents
CPT/HCPCS: 0240U; 36415; 71045; 71275; 80048; 80053; 80076; 82150; 82550; 82553; 82728; 82805; 82947; 83605; 83690; 84145; 84484; 85025; 85610; 85730; 86140; 87040; 93005; 94760; 96361; 96374; 99284; J2920; J7030; Q9967

== ENCOUNTER 2024-01-24 05:59 | Emergency (ER) | payer SELFPAY ==
[2024-01-24] MEDS ORDERED: ONDANSETRON 4 MG/2 ML VIAL ONE (06:25)
[2024-01-24] MEDS ORDERED: KETOROLAC 30 MG/ML INJ ONE (06:26)
[2024-01-24] MEDS ORDERED: ACETAMINOPHEN 500 MG TAB ONE ×2 (06:26→10:01)
[2024-01-24] MEDS ORDERED: CIPROFLOXACIN 400mg IV 400 MG/200 ML BAG IV ONE (06:26)
[2024-01-24] MEDS ORDERED: FAMOTIDINE 20 MG/2 ML VIAL IV ONE (06:26)
[2024-01-24] MEDS ORDERED: MORPHINE 4 MG/ML SYR ONE (06:26)
[2024-01-24] MEDS ORDERED: NA CHLORIDE 0.9% 2,000 ML ONE (06:27)
[2024-01-24 06:59] LABS: Absolute Eosinophils 0.1 K/uL (0-0.5); Absolute Lymphocytes (CBC) 0.4 K/uL (0.7-4.9); Absolute Monocytes 0.8 K/uL (0.1-1.3); Absolute Neutrophil 7.5 K/uL (1.8-8.0); Basophils % 0.3 % (0-1.3); Eosinophils % 0.6 % (0-4.4); Hematocrit 41.4 % (39.6-49.0); Hemoglobin 14.5 g/dL (13.6-17.9); Lymphocytes % 4.2 % (15.3-44.8); MCH 30.7 pg (27.0-35.0); MCV 87.9 fL (80-100); MPV 9.6 fL (7.6-11.3); Neutrophils % 85.9 % (41.7-73.7); Platelets 150 thou/uL (152-406); RBC Red Blood Cell Count 4.71 M/uL (4.33-5.43); Red Cell Distribution Width 13.5 % (12.1-15.2)
[2024-01-24 07:09] LABS: SARS-CoV-2 Antigen CONTROL BLUE LINE VIS/BG OK; SARS-CoV-2 Antigen Rapid Res Positive (Negative)
[2024-01-24 07:12] LABS: Albumin 4.3 g/dL (3.4-5.0); Anion Gap 9.8 mEq/L (5.0-15.0); Bilirubin Total 1.3 mg/dL (0.2-1.0); Globulin 4.1 g/dL (2.3-3.5); Protein, Total 8.4 g/dL (6.4-8.2)
[2024-01-24 07:16] LABS: Potassium 3.8 mEq/L (3.5-5.1)
[2024-01-24] MEDS ORDERED: METOCLOPRAMIDE 10 MG/2mL INJ ONE (07:35)
[2024-01-24 07:58] LABS: Blood Morphology Comment NOT SEEN (NOT SEEN); Platelet Estimate ADEQ; White Blood Cell Scan OK (OK)
[2024-01-24 08:37] LABS: Specific Gravity 1.018 (1.005-1.030); Urine Bilirubin NEGATIVE (Negative); Urine Blood Negative (Negative); Urine Clarity Clear (Clear); Urine Color Light-Yellow (Yellow); Urine Glucose NEGATIVE (Negative); Urine Ketones NEGATIVE (Negative); Urine Microscopic Reflex YN NO UMIC; Urine Nitrite NEGATIVE (Negative); Urine Protein NEGATIVE (Negative); Urine Urobilinogen Normal (Normal)
--- NOTE | 2024-01-24 09:07 | RAD REPORT ---
EXAM DESCRIPTION: CT - Chest Abdomen Pelvis W Cont - 01/24/2024 8:11 am CLINICAL HISTORY: CHEST PAIN. COMPARISON: No comparisons TECHNIQUE: Thin axial CT images of the chest, abdomen, and pelvis, performed following intravenous a dministration of iodinated contrast. Multiplanar reformats were generated and reviewed. All CT scans are performed using dose optimization technique as appropriate and may include automated exposure control or mA/KV adjustment according to patient size. FINDINGS: The lungs are clear.No pleural or pericardial effusion.No intrathoracic adenopathy. The liver shows diffuse parenchymal hypoattenuation suggesting steatosis. Status post cholecystectomy . Spleen, pancreas, adrenal glands and kidneys are within normal limits. No bowel obstruction, free air, free fluid or abscess. Diastasis recti. Normal appendix. No patholog ic lymphadenopathy in the abdomen or pelvis. No worrisome osseous finding. IMPRESSION: No acute findings. Incidentally noted diffuse liver parenchymal hypoattenuation suggesting steatosis.
--- NOTE | 2024-01-24 10:01 | ER ---
Nurse's Notes [facility] Name: Scott Wells Age: 53 yrs Sex: Male : 1970 Arrival Date: 01/24/2024 Time: 05:59 Bed 17 Private MD: Diagnosis: Coronavirus infection, unspecified Presentation: 01/23 06:10 Chief complaint: Patient states: Started with coughing and then I vomited like 4 or 5 vc1 times, I feel feverish, SOB, and have diarrhea. Coronavirus screen: Client denies travel out of the [place] in the last 14 days. cough unrelated to allergies, diarrhea, fatigue, fever, headache, nausea, shortness of breath, vomiting. Client presents with at least one sign or symptom that may indicate coronavirus-19. Standard/surgical mask placed on the client. Ebola Screen: Patient negative for fever greater than or equal to 101.5 degrees Fahrenheit, and additional compatible Ebola Virus Disease symptoms Patient denies exposure to infectious person. Patient denies travel to an Ebola-affected area in the 21 days before illness onset. No symptoms or risks identified at this time. Initial Sepsis Screen: Does the patient meet any 2 criteria? RR > 20 per min. HR > 90 bpm. Yes Does the patient have a suspected source of infection? No. Patient's initial sepsis screen is negative. Risk Assessment: Do you want to hurt yourself or someone else? Patient reports no desire to harm self or others. Onset of symptoms was January 22, 2024. Care prior to arrival: None. Activity prior to arrival: None. Mechanism of Injury: No Mechanism of Injury. 06:10 Method Of Arrival: Ambulatory vc1 06:10 Acuity: NATALIE 3 vc1 Triage Assessment: 06:15 Headache History: The patient has had previous headaches and this one is more severe vc1 than previous episodes. General: Appears in no apparent distress. uncomfortable, ill, obese, Behavior is calm, cooperative, appropriate for age. Pain: Complains of pain in top of head and right upper quadrant Pain radiates to left frontal area and right frontal area Pain currently is 10 out of 10 on a pain scale. Quality of pain is described as sharp, Pain began suddenly, Also complains of nausea. EENT: No deficits noted. No signs and/or symptoms were reported regarding the EENT system. Neuro: Level of Consciousness is awake, alert, obeys commands, Oriented to person, place, time, situation, Appropriate for age Reports headache parietal area, frontal area. Cardiovascular: No deficits noted. Respiratory: Airway is patent Respiratory effort is even, unlabored, Respiratory pattern is regular, symmetrical, Breath sounds are clear bilaterally. GI: Abdomen is round Abd is soft Abd is non tender Reports diarrhea, nausea, vomiting. : No deficits noted. No signs and/or symptoms were reported regarding the genitourinary system. Derm: Skin is intact, is healthy with good turgor, Skin is dry, Skin is normal, Skin temperature is warm. Musculoskeletal: Circulation, motion, and sensation intact. Range of motion: intact in all extremities. Historical: - Allergies: 06:13 Keflex; vc1 06:13 PENICILLINS; vc1 - PMHx: 06:13 Hypertension; vc1 - PSHx: 06:13 lymph node removed; vc1 - Immunization history:: Client reports having NOT received the Covid vaccine. - Infectious Disease History:: Denies. - Social history:: Smoking status: Patient denies any tobacco usage or history of. - Family history:: not pertinent. Screenin:11 [facility] ED Fall Risk Assessment (Adult) History of falling in the last 3 months, al5 including since admission No falls in past 3 months (0 pts) Confusion or Disorientation No (0 pts) Intoxicated or Sedated No (0 pts) Impaired Gait No (0 pts) Mobility Assist Device Used No (0 pt) Altered Elimination No (0 pt) Score/Fall Risk Level 0 - 2 = Low Risk Oriented to surroundings, Maintained a safe environment, Hourly rounding (assess needs \T\ fall precautionary measures) done. Abuse screen: Denies threats or abuse. Denies injuries from another. Nutritional screening: No deficits noted. Tuberculosis screening: No symptoms or risk factors identified. Assessment: 06:12 General: Appears in no apparent distress. uncomfortable, Behavior is calm, cooperative. al5 Pain: Complains of pain in head and right upper quadrant. Neuro: Level of Consciousness is awake, alert, obeys commands, Oriented to person, place, time, situation. Neuro: Reports headache. Cardiovascular: Capillary refill < 3 seconds. Respiratory: Airway is patent Respiratory effort is even, unlabored, Respiratory pattern is regular, symmetrical. GI: Abdomen is round non-distended, Reports nausea, vomiting. : No signs and/or symptoms were reported regarding the genitourinary system. EENT: No signs and/or symptoms were reported regarding the EENT system. Derm: Skin is intact, Skin is pink, warm \T\ dry. normal. Musculoskeletal: No signs and/or symptoms reported regarding the musculoskeletal system. 07:00 Reassessment: RECD REPORT FROM ODALYS EDOUARD. bp 09:00 Reassessment: Patient appears in no apparent distress at this time. Patient is alert, bp oriented x 3, equal unlabored respirations, skin warm/dry/pink. Patient states symptoms have improved. Vital Signs: 06:10 BP 165 / 95; Pulse 103; Resp 24; Temp 99; Pulse Ox 98% ; Weight 127.01 kg; Height 5 ft. vc1 9 in. ; Pain 10/10; 07:00 BP 156 / 80; Pulse 83; Resp 15; Pulse Ox 95% ; bp 09:00 BP 150 / 78; Pulse 89; Resp 15; Pulse Ox 97% ; bp 10:13 BP 151 / 75; Pulse 83; Resp 16; Pulse Ox 98% ; bp 06:10 Body Mass Index 41.35 (127.01 kg, 175.26 cm) vc1 06:10 Pain Scale: Adult vc1 Ayala Coma Score: 07:32 Eye Response: spontaneous(4). Motor Response: obeys commands(6). Verbal Response: sp4 oriented(5). Total: 15. ED Course: 06:03 Patient arrived in ED. [email or web address] 06:05 Odalys Bella RN is Primary Nurse. al5 06:05 Josue Olivera MD is Attending Physician. al5 06:11 Patient has correct armband on for positive identification. Bed in low position. Call al5 light in reach. Side rails up X 1. Provided Education on: processes and procedures. 06:11 No provider procedures requiring assistance completed. al5 06:13 Triage completed. vc1 06:15 Arm band placed on right wrist. vc1 06:29 Initial lab(s) drawn, by ED staff, sent to lab. First set of blood cultures drawn by ED bp staff, COVID swab sent to lab. Flu and/or RSV swab sent to lab. Inserted saline lock: 20 gauge in right antecubital area, using aseptic technique. Blood collected. 08:13 CT Chest, Abdomen, Pelvis - W/Contrast In Process Unspecified. EDMS 10:14 IV discontinued, intact, bleeding controlled, No redness/swelling at site. Pressure bp dressing applied. Administered Medications: 07:05 Drug: Famotidine IVP 20 mg IVP once; dilute with 10 mL 0.9% NaCl; give over 2 minutes al5 Route: IVP; Site: right antecubital; 07:39 Follow up: Response: No adverse reaction bp 07:05 Drug: TORadol - Ketorolac IVP 30 mg IVP once Route: IVP; Site: right antecubital; al5 10:16 Follow up: Response: No adverse reaction bp 07:05 Drug: morphine IVP or IV 4 mg IVP once over 4 mins Route: IVP; Infused Over: 4 mins; al5 Site: right antecubital; 07:39 Follow up: Response: No adverse reaction bp 07:05 Drug: NS 0.9% IV 1000 ml IV at 1 bolus Per protocol; 1000 mL bolus Route: IV; Rate: 1 al5 bolus; Site: right antecubital; 10:15 Follow up: IV Status: Completed infusion; IV Intake: 1000ml bp 07:05 Drug: Acetaminophen PO 1000 mg PO once Route: PO; al5 07:23 Follow up: Response: No adverse reaction bp 07:05 Drug: Ciprofloxacin IVPB 400 mg 200 ml IVPB once over 60 mins Volume: 200 ml; Route: al5 IVPB; Infused Over: 60 mins; Site: right antecubital; 10:15 Follow up: IV Status: Completed infusion; IV Intake: 200ml bp 07:06 Drug: NS 0.9% IV 1000 ml IV at 1 bolus Per protocol; 1000 mL bolus Route: IV; Rate: 1 al5 bolus; Site: right antecubital; 10:15 Follow up: IV Status: Completed infusion; IV Intake: 1000ml bp 07:06 Drug: Ondansetron IVP 4 mg IVP once; over 2 minutes Route: IVP; Site: right antecubital;al5 10:16 Follow up: Response: No adverse reaction bp 07:38 Drug: metoCLOPramide IVP 10 mg IVP once; over 1 to 2 minutes Route: IVP; Site: right bp antecubital; 10:15 Follow up: Response: No adverse reaction bp 07:39 Not Given (Physician Discretion): [id number] mg 100 ml IVPB at 200 ml/hr once bp over 30 mins Medication: 06:11 VIS not applicable for this client. al5 Intake: 10:15 IV: 200ml; Total: 200ml. bp 10:15 IV: 1000ml; Total: 1200ml. bp 10:15 IV: 1000ml; Total: 2200ml. bp Outcome: 10:01 Discharge ordered by . sd2 10:14 Discharged to home ambulatory, bp 10:14 Condition: stable 10:14 Discharge instructions given to patient, Instructed on discharge instructions, follow up and referral plans. medication usage, Demonstrated understanding of instructions, follow-up care, medications, Prescriptions given X 4, 10:16 Patient left the ED. bp Signatures: Dispatcher [employer] EDMS Jeferson Meade, RN RN bp Nancy Boateng [email or web address] Serina Resendiz RN RN vc1 Kamla Prince MD MD sd2 Josue Olivera MD MD sp4 Odalys Bella RN RN al5
--- NOTE | 2024-01-24 10:01 | EDPHYS ---
Physician Documentation [facility] Name: Scott Wells Age: 53 yrs Sex: Male : 1970 Arrival Date: 01/24/2024 Time: 05:59 Bed 17 Private MD: ED Physician Josue Olivera HPI: 01/23 06:16 This 53 yrs old Male presents to ER via Ambulatory with complaints of sp4 Headache, Nausea/Vomiting. 07:32 Presents with 2 days of headache, chills, nausea vomiting diarrhea and right lower sp4 quadrant abdominal pain. Historical: - Allergies: 06:13 Keflex; vc1 06:13 PENICILLINS; vc1 - PMHx: 06:13 Hypertension; vc1 - PSHx: 06:13 lymph node removed; vc1 - Immunization history:: Client reports having NOT received the Covid vaccine. - Infectious Disease History:: Denies. - Social history:: Smoking status: Patient denies any tobacco usage or history of. - Family history:: not pertinent. ROS: 07:32 Constitutional: Positive fever, positive chills, positive headache, positive nausea sp4 vomiting diarrhea, positive abdominal pain, positive feeling unwell, weakness, fatigue 07:32 All other systems are negative, Exam: 07:32 Constitutional: This is a well developed, well nourished patient who is awake, alert, sp4 and in no acute distress. Head/Face: Normocephalic, atraumatic. Eyes: Pupils equal round and reactive to light, extra-ocular motions intact. Lids and lashes normal. Conjunctiva and sclera are not injected. Cornea within normal limits. Periorbital areas with no swelling, redness, or edema. ENT: Nares patent. No nasal discharge, no septal abnormalities noted. Tympanic membranes are normal and external auditory canals are clear. Oropharynx with no redness, swelling, or masses, exudates, or evidence of obstruction, uvula midline. Mucous membranes moist. Neck: Trachea midline, no thyromegaly or masses palpated, and no cervical lymphadenopathy. Supple, full range of motion without nuchal rigidity, or vertebral point tenderness. Chest/axilla: Normal chest wall appearance and motion. Nontender with no deformity. No lesions are appreciated. Cardiovascular: Regular rate and rhythm with a normal S1 and S2. No gallops, murmurs, or rubs. Normal PMI, no JVD. No pulse deficits. Respiratory: Lungs have equal breath sounds bilaterally, clear to auscultation and percussion. No rales, rhonchi or wheezes noted. No increased work of breathing, no retractions or nasal flaring. Abdomen/GI: Soft, with normal bowel sounds. No distension or tympany. No guarding or rebound. No evidence of tenderness throughout. Back: No spinal tenderness. No costovertebral tenderness. Skin: Warm, dry with normal turgor. Normal color with no rashes, no lesions, and no evidence of cellulitis. MS/ Extremity: Pulses equal, no cyanosis. Neurovascular intact. Full, normal range of motion. Neuro: Awake and alert, GCS 15, oriented to person, place, time, and situation. Cranial nerves II-XII grossly intact. Motor strength 5/5 in all extremities. Sensory grossly intact. Psych: Awake, alert, with orientation to person, place and time. Behavior, mood, and affect are within normal limits Vital Signs: 06:10 BP 165 / 95; Pulse 103; Resp 24; Temp 99; Pulse Ox 98% ; Weight 127.01 kg; Height 5 ft. vc1 9 in. ; Pain 10/10; 07:00 BP 156 / 80; Pulse 83; Resp 15; Pulse Ox 95% ; bp 09:00 BP 150 / 78; Pulse 89; Resp 15; Pulse Ox 97% ; bp 10:13 BP 151 / 75; Pulse 83; Resp 16; Pulse Ox 98% ; bp 06:10 Body Mass Index 41.35 (127.01 kg, 175.26 cm) vc1 06:10 Pain Scale: Adult vc1 Ayala Coma Score: 07:32 Eye Response: spontaneous(4). Motor Response: obeys commands(6). Verbal Response: sp4 oriented(5). Total: 15. MDM: 06:24 Patient medically screened. sp4 07:32 Differential diagnosis: migraine, tension headache, vasomotor headache. Data reviewed: sp4 vital signs, nurses notes, lab test result(s), radiologic studies, CT scan. Transition of care: After a detail discussion of the patient's case, care is transferred to Kamla Prince MD. ED course: Patient is positive for COVID-19 secondary to abdominal pain will await for CT report.. 01/23 06:16 Order name: SARS RAPID; Complete Time: 07:27 sp4 01/23 06:22 Order name: CBC with Diff; Complete Time: 08:04 sp4 01/23 06:22 Order name: CMP; Complete Time: 07:27 sp4 01/23 06:22 Order name: Lipase; Complete Time: 07:27 sp4 01/23 06:22 Order name: Urinalysis w/ reflexes; Complete Time: 09:32 sp4 01/23 06:23 Order name: Blood Culture Adult (2) sp4 01/23 06:23 Order name: Lactate w/ 2H reflex if indic.; Complete Time: 07:27 sp4 01/23 06:24 Order name: CRP; Complete Time: 07:27 sp4 01/23 07:02 Order name: CBC Smear Scan; Complete Time: 08:04 EDMS 01/23 06:25 Order name: CT Chest, Abdomen, Pelvis - W/Contrast; Complete Time: 09:32 sp4 01/23 06:22 Order name: IV Saline Lock; Complete Time: 07:06 sp4 01/23 06:22 Order name: Labs collected and sent; Complete Time: 07:06 sp4 Administered Medications: 07:05 Drug: Famotidine IVP 20 mg IVP once; dilute with 10 mL 0.9% NaCl; give over 2 minutes al5 Route: IVP; Site: right antecubital; 07:39 Follow up: Response: No adverse reaction bp 07:05 Drug: TORadol - Ketorolac IVP 30 mg IVP once Route: IVP; Site: right antecubital; al5 10:16 Follow up: Response: No adverse reaction bp 07:05 Drug: morphine IVP or IV 4 mg IVP once over 4 mins Route: IVP; Infused Over: 4 mins; al5 Site: right antecubital; 07:39 Follow up: Response: No adverse reaction bp 07:05 Drug: NS 0.9% IV 1000 ml IV at 1 bolus Per protocol; 1000 mL bolus Route: IV; Rate: 1 al5 bolus; Site: right antecubital; 10:15 Follow up: IV Status: Completed infusion; IV Intake: 1000ml bp 07:05 Drug: Acetaminophen PO 1000 mg PO once Route: PO; al5 07:23 Follow up: Response: No adverse reaction bp 07:05 Drug: Ciprofloxacin IVPB 400 mg 200 ml IVPB once over 60 mins Volume: 200 ml; Route: al5 IVPB; Infused Over: 60 mins; Site: right antecubital; 10:15 Follow up: IV Status: Completed infusion; IV Intake: 200ml bp 07:06 Drug: NS 0.9% IV 1000 ml IV at 1 bolus Per protocol; 1000 mL bolus Route: IV; Rate: 1 al5 bolus; Site: right antecubital; 10:15 Follow up: IV Status: Completed infusion; IV Intake: 1000ml bp 07:06 Drug: Ondansetron IVP 4 mg IVP once; over 2 minutes Route: IVP; Site: right antecubital;al5 10:16 Follow up: Response: No adverse reaction bp 07:38 Drug: metoCLOPramide IVP 10 mg IVP once; over 1 to 2 minutes Route: IVP; Site: right bp antecubital; 10:15 Follow up: Response: No adverse reaction bp 07:39 Not Given (Physician Discretion): [id number] mg 100 ml IVPB at 200 ml/hr once bp over 30 mins Disposition Summary: 01/24/24 10:01 Discharge Ordered Notes: Location: Home sd2 Problem: new sd2 Symptoms: have improved sd2 Condition: Stable sd2 Diagnosis - Coronavirus infection, unspecified sd2 Followup: sd2 - With: Private Physician - When: 2 - 3 days - Reason: Discharge Instructions: - Discharge Summary Sheet sp4 - COVID-19 sp4 Forms: - Medication Reconciliation Form sd2 - Antibiotic Education sd2 - Prescription Opioid Use sd2 - Patient Portal Instructions sd2 - Leadership Thank You Letter sd2 Prescriptions: - dextromethorphan-guaifenesin 30-600 mg Oral Tablet, Extended Release 12 hr - take 2 tablet ORAL route every 12 hours PRN cough; 40 tablet; Refills: 0, sp4 Product Selection Permitted - Ibuprofen 800 mg Oral Tablet - take 1 tablet ORAL route every 8 hours As needed take with food; 30 tablet; sp4 Refills: 0, Product Selection Permitted - Lomotil 2.5-0.025 mg Oral tablet - take 1 tablet ORAL route every 6 hours As needed; 30 tablet; Refills: 0, sp4 Product Selection Permitted - promethazine 25 mg Oral tablet - take 1 tablet ORAL route every 6 hours As needed PRN nausea; 30 tablet; sp4 Refills: 0, Product Selection Permitted Signatures: Dispatcher [employer] EDJeferson Harkins, RN RN bp Serina Resendiz RN RN vc1 Kamla Prince MD MD sd2 Josue Olivera MD MD sp4 Christina Bella RN RN al5 Corrections: (The following items were deleted from the chart) 06:17 06:17 SARS-COV-2 Antigen Rapid+I.LAB.BRZ ordered. EDMS EDMS 06:28 06:23 Abdomen Pelvis W Con+CT.RAD.BRZ ordered. EDMS EDMS
[2024-01-24 10:26] VITALS: TEMP 99
[2024-01-24 10:43] VITALS: BP 151/75; O2SAT 98
== END 2024-01-24 10:16 | disposition home or self-care (01) ==
LOC: ER 05:59
DX: U07.1 COVID-19 (principal)
CPT/HCPCS: 36415; 71260; 74177; 80053; 81003; 83605; 83690; 85025; 86140; 87040; 87811; 96365; 96366; 96375; 99284; J0744; J2405; J2765; J7030; Q9967

== ENCOUNTER 2024-06-19 19:16 | Emergency (ER) | payer SELFPAY ==
[2024-06-19] MEDS ORDERED: ONDANSETRON 4 MG/2 ML VIAL ONE (20:20)
[2024-06-19] MEDS ORDERED: METOCLOPRAMIDE 10 MG/2mL INJ ONE (20:21)
[2024-06-19] MEDS ORDERED: KETOROLAC 30 MG/ML INJ ONE (20:21)
[2024-06-19] MEDS ORDERED: NA CHLORIDE 0.9% 2,000 ML ONE (20:22)
[2024-06-19] MEDS ORDERED: MORPHINE 4 MG/ML SYR ONE (20:22)
[2024-06-19] MEDS ORDERED: FAMOTIDINE 20 MG/2 ML VIAL IV ONE (20:22)
[2024-06-19 21:02] LABS: Absolute Lymphocytes (CBC) 0.3 K/uL (0.7-4.9); Absolute Monocytes 0.5 K/uL (0.1-1.3); Absolute Neutrophil 4.3 K/uL (1.8-8.0); Basophils % 0.5 % (0-1.3); Eosinophils % 0.5 % (0-4.4); Hematocrit 39.3 % (39.6-49.0); Hemoglobin 13.9 g/dL (13.6-17.9); Lymphocytes % 4.9 % (15.3-44.8); MCH 30.7 pg (27.0-35.0); MCHC 35.4 g/dL (32.0-36.0); MCV 86.6 fL (80-100); MPV 9.5 fL (7.6-11.3); Neutrophils % 84.1 % (41.7-73.7); Nucleated Red Blood Cells % 0.1 % (0-0); Platelets 128 thou/uL (152-406); RBC Red Blood Cell Count 4.54 M/uL (4.33-5.43); Red Cell Distribution Width 13.7 % (12.1-15.2)
[2024-06-19 21:13] LABS: Albumin 3.6 g/dL (3.4-5.0); Anion Gap 9.6 mEq/L (5.0-15.0); Bilirubin Total 0.9 mg/dL (0.2-1.0); Globulin 3.6 g/dL (2.3-3.5); Potassium 3.6 mEq/L (3.5-5.1); Protein, Total 7.2 g/dL (6.4-8.2)
[2024-06-19 21:17] LABS: Specific Gravity 1.014 (1.005-1.030); Urine Bilirubin NEGATIVE (Negative); Urine Blood Negative (Negative); Urine Clarity Clear (Clear); Urine Color Light-Yellow (Yellow); Urine Glucose NEGATIVE (Negative); Urine Ketones NEGATIVE (Negative); Urine Microscopic Reflex YN NO UMIC; Urine Nitrite NEGATIVE (Negative); Urine Protein NEGATIVE (Negative); Urine Urobilinogen Normal (Normal)
--- NOTE | 2024-06-19 22:08 | RAD REPORT ---
EXAMINATION: CT Abdomen Pelvis W Contrast CLINICAL INDICATION: Male, 54 years old. ABD PAIN TECHNIQUE: CT abdomen and pelvis was performed, after the administration of IV contrast[facility] Axial, sagittal and coronal reconstructions were obtained. One or more of the following dose reduction techniques were used: Automated exposure control, adjustment of the mA and k V according to patient size, and iterative reconstruction. Unless otherwise specified, incidental findings do not require dedicated imaging follow-up. COMPARISON: 12/20/2019. FINDINGS: LOWER CHEST: The visualized lung bases are clear. LIVER: Mild fatty liver is present. No focal lesion or biliary dilataion is seen. BILIARY SYSTEM: Status post cholecystectomy. SPLEEN: Normal size. No focal lesion. PANCREAS: No mass, ductal dilation, or [place]-pancreatic fluid. ADRENALS: Normal; no mass. KIDNEYS: Normal size and contour. No hydronephrosis. URINARY BLADDER: Unremarkable. GASTROINTESTINAL TRACT: No evidence of free air, significant intra-abdominal free fluid, bowel obstru ction or abscess. Nonspecific fluid opacification of proximal and central small bowel loops, without significant distention, could reflect mild enteritis. APPENDIX: Normal appendix. LYMPH NODES: No lymphadenopathy. MUSCULOSKELETAL: No acute or suspicious osseous abnormality. ADDITIONAL FINDINGS: None. IMPRESSION: Nonspecific fluid opacification of nondistended small bowel loops as above, could reflect mild enteri tis. No acute or concerning abnormalities seen in the abdomen or pelvis. Incidental findings as above
--- NOTE | 2024-06-19 23:08 | EDPHYS ---
Physician Documentation [facility] Name: Scott Wells Age: 54 yrs Sex: Male : 1970 Arrival Date: 06/19/2024 Time: 19:16 Bed 15 Private MD: ED Physician Josue Olivera HPI: 06/19 19:21 This 54 yrs old Male presents to ER via Unassigned with complaints of sp4 Nausea/Vomiting, Fever, Abdominal Pain, Low Back Pain. 06/20 00:21 54-year-old male presents with acute onset of nausea vomiting fever abdominal pain sp4 lower back pain. Patient reports pain is mostly right lower abdomen. Patient reported profuse vomiting at home vomiting 5 times prior to arrival. Patient reports generalized chills body aches and headache.. Historical: - Allergies: 06/19 19:34 Keflex; cp4 19:34 PENICILLINS; cp4 - Home Meds: 19:34 carvedilol 12.5 mg Oral tab 1 tab 2 times per day [Active]; lisinopril 40 mg Oral tab 1 cp4 tab once daily [Active]; - PMHx: 19:34 Hypertension; cp4 - PSHx: 19:34 lymph node removed; cp4 - Immunization history:: Adult Immunizations up to date. - Infectious Disease History:: Denies. - Social history:: Smoking status: Patient denies any tobacco usage or history of. - Family history:: not pertinent. ROS: 06/20 00:21 Constitutional: Positive fever, positive chills, positive nausea, positive vomiting, sp4 positive body aches, positive abdominal pain, positive back pain, positive headache All other systems are negative, Exam: 00:21 Constitutional: This is a well developed, well nourished patient who is awake, alert, sp4 ill-appearing male but nontoxic. Head/Face: Normocephalic, atraumatic. Eyes: Pupils equal round and reactive to light, extra-ocular motions intact. Lids and lashes normal. Conjunctiva and sclera are not injected. Cornea within normal limits. Periorbital areas with no swelling, redness, or edema. ENT: Nares patent. No nasal discharge, no septal abnormalities noted. Tympanic membranes are normal and external auditory canals are clear. Oropharynx with no redness, swelling, or masses, exudates, or evidence of obstruction, uvula midline. Mucous membranes moist. Neck: Trachea midline, no thyromegaly or masses palpated, and no cervical lymphadenopathy. Supple, full range of motion without nuchal rigidity, or vertebral point tenderness. Chest/axilla: Normal chest wall appearance and motion. Nontender with no deformity. No lesions are appreciated. Cardiovascular: Regular rate and rhythm with a normal S1 and S2. No gallops, murmurs, or rubs. Normal PMI, no JVD. No pulse deficits. Respiratory: Lungs have equal breath sounds bilaterally, clear to auscultation and percussion. No rales, rhonchi or wheezes noted. No increased work of breathing, no retractions or nasal flaring. Abdomen/GI: Soft, with normal bowel sounds. No distension or tympany. No guarding or rebound. Abdomen is obese, there is diffuse abdominal tenderness worse tenderness in the right lower quadrant. No rebound Back: No spinal tenderness. No costovertebral tenderness. Skin: Warm, dry with normal turgor. Normal color with no rashes, no lesions, and no evidence of cellulitis. MS/ Extremity: Pulses equal, no cyanosis. Neurovascular intact. Full, normal range of motion. Neuro: Awake and alert, GCS 15, oriented to person, place, time, and situation. Cranial nerves II-XII grossly intact. Motor strength 5/5 in all extremities. Sensory grossly intact. Psych: Awake, alert, with orientation to person, place and time. Behavior, mood, and affect are within normal limits Vital Signs: 06/19 19:30 BP 139 / 75; Pulse 108; Resp 20; Temp 98.2; Pulse Ox 97% on 2 lpm NC; ay 19:32 BP 155 / 89; Pulse 112; Resp 20; Temp 98.5; Pulse Ox 98% ; Weight 129.27 kg; Height 5 cp4 ft. 9 in. ; Pain 10/10; 20:00 BP 139 / 77; Pulse 107; Resp 20; Pulse Ox 98% ; ay 20:15 BP 147 / 77; Pulse 106; Resp 21; Pulse Ox 97% ; ay 20:30 BP 132 / 89; Pulse 113; Resp 19; Pulse Ox 98% ; ay 23:00 BP 135 / 85; Pulse 96; Resp 18; Pulse Ox 97% ; ay 19:32 Body Mass Index 42.09 (129.27 kg, 175.26 cm) cp4 19:32 Pain Scale: Adult cp4 [place] Coma Score: 06/20 00:21 Eye Response: spontaneous(4). Motor Response: obeys commands(6). Verbal Response: sp4 oriented(5). Total: 15. MDM: 06/19 19:24 Medical Screening Exam initiated sp4 06/20 00:23 Differential diagnosis: Nonspecific abd pain, gastritis, viral gastroenteritis, sp4 gastroenteritis. Data reviewed: vital signs, nurses notes, lab test result(s), radiologic studies, CT scan. Consideration of Admission/Observation Escalation of care including admission/observation considered. ED course: EXAMINATION: CTAbdomen Pelvis W Contrast CLINICAL INDICATION: Male, 54 years old. ABD PAIN TECHNIQUE: CT abdomen and pelvis was performed, after the administration of IV contrast, as per department protocol. Axial, sagittal and coronal reconstructions were obtained. One or more of the following dose reduction techniques were used: Automated exposure control, adjustment of the mA and kV according to patient size, and iterative reconstruction. Unless otherwise specified, incidental findings do not require dedicated imaging follow-up. COMPARISON: 12/20/2019. FINDINGS: LOWER CHEST: The visualized lung bases are clear. LIVER: Mild fatty liver is present. No focal lesion or biliary dilataion is seen. BILIARYSYSTEM: Status post cholecystectomy. SPLEEN: Normal size. No focal lesion. PANCREAS: No mass, ductal dilation, or [place]-pancreatic fluid. ADRENALS: Normal; no mass. KIDNEYS: Normal size and contour. No hydronephrosis. URINARYBLADDER: Unremarkable. GASTROINTESTINAL TRACT: No evidence of free air, significant intra-abdominal free fluid, bowel obstruction or abscess. Nonspecific fluid opacification of proximal and central small bowel loops, without significant distention, could reflect mild enteritis. APPENDIX: Normal appendix. LYMPH NODES: No lymphadenopathy. MUSCULOSKELETAL: No acute or suspicious osseous abnormality. ADDITIONAL FINDINGS: None. IMPRESSION: Nonspecific fluid opacification of nondistended small bowel loops as above, could reflect mild enteritis. No acute or concerning abnormalities seen in the abdomen or pelvis. Incidental findings as above . 00:25 ED course: Patient felt improved. He was found stable for discharge home. Diagnosis is sp4 acute viral gastroenteritis. Influenza is negative. Advise clear liquid diet for 24 hours. 06/19 19:21 Order name: CBC with Diff; Complete Time: 21:23 4 06/19 19:21 Order name: CMP; Complete Time: 21:23 4 06/19 19:21 Order name: Lipase; Complete Time: 21:23 4 06/19 19:21 Order name: Urinalysis w/ reflexes; Complete Time: 21:23 4 06/19 19:39 Order name: Influenza Screen (a \T\ B); Complete Time: 21:23 4 06/19 19:34 Order name: CT Abd/Pelvis - IV Contrast Only; Complete Time: 22:36 4 06/19 19:21 Order name: IV Saline Lock; Complete Time: 20:59 [facility] 06/19 19:21 Order name: Labs collected and sent; Complete Time: 20:59 sp4 Administered Medications: 06/19 20:58 Drug: Ketorolac IVP 30 mg IVP once Route: IVP; Site: right antecubital; ay 23:35 Follow up: Response: No adverse reaction ay 20:58 Drug: NS 0.9% IV 1000 ml IV at 1000 ml once; to be given as a bolus over 60 minutes ay Route: IV; Rate: 1000 ml; Site: right antecubital; 23:34 Follow up: Response: No adverse reaction; IV Status: Completed infusion; IV Intake: ay 1000ml 23:34 Follow up: IV Status: Completed infusion; IV Intake: 1000ml ay 23:35 Follow up: Response: No adverse reaction; IV Status: Completed infusion; IV Intake: ay 1000ml 20:58 Drug: Famotidine IVP 20 mg IVP once; dilute with 10 mL 0.9% NaCl; give over 2 minutes ay Route: IVP; Site: right antecubital; 23:34 Follow up: Response: No adverse reaction ay 20:59 Drug: Ondansetron IVP 8 mg IVP once; over 2 minutes Route: IVP; Site: right antecubital;ay 23:37 Follow up: Response: No adverse reaction ay 20:59 Drug: metoCLOPramide IVP 10 mg IVP once; over 1 to 2 minutes Route: IVP; Site: right ay antecubital; 23:36 Follow up: Response: No adverse reaction ay 21:07 Drug: NS 0.9% IV 1000 ml IV at 1 bolus Per protocol; to be given as a bolus over 60 ay minutes Route: IV; Rate: 1 bolus; Site: right antecubital; 23:37 Follow up: Response: No adverse reaction ay 23:40 Follow up: IV Status: Completed infusion; IV Intake: 1000ml ay 21:07 Drug: morphine IVP or IV 8 mg IVP once over 4 mins Route: IVP; Infused Over: 4 mins; ay Site: right antecubital; 23:36 Follow up: Response: No adverse reaction ay 23:31 Drug: Ibuprofen PO 800 mg PO once Route: PO; ay 23:34 Follow up: Response: Medication administered at discharge. ay 23:31 Drug: Promethazine PO 25 mg PO once Route: PO; ay 23:33 Follow up: Response: Medication administered at discharge. ay 23:31 Drug: Acetaminophen PO 1000 mg PO once Route: PO; ay 23:33 Follow up: Response: Medication administered at discharge. ay Disposition: 06/20 00:25 Chart complete. sp4 Disposition Summary: 06/19/24 23:07 Discharge Ordered Notes: Location: Home sp4 Problem: new sp4 Symptoms: have improved sp4 Condition: Stable sp4 Diagnosis - Acute viral gastroenteritis, acute abdominal pain, elevated liver enzymes, sp4 elevated blood sugar Followup: sp4 - With: Private Physician - When: 7 - 10 days - Reason: Recheck today's complaints Discharge Instructions: - Discharge Summary Sheet sp4 - Viral Gastroenteritis, Adult, [id number] sp4 Forms: - Patient Portal Instructions sp4 Prescriptions: - acetaminophen-codeine 300-60 mg Oral tablet - take 1 tablet ORAL route every 8 hours PRN pain; 20 tablet; Refills: 0, Product sp4 Selection Permitted - Ibuprofen 800 mg Oral Tablet - take 1 tablet ORAL route every 8 hours As needed take with food; 30 tablet; sp4 Refills: 0, Product Selection Permitted - Lomotil 2.5-0.025 mg Oral tablet - take 1 tablet ORAL route every 6 hours As needed PRN diarrhea; 30 tablet; sp4 Refills: 0, Product Selection Permitted - ondansetron 8 mg Oral Tablet,disintegrating - take 1 tablet ORAL route every 8 hours PRN nausea; 30 tablet; Refills: 0, sp4 Product Selection Permitted Signatures: Dispatcher [employer] Josue Callahan MD MD sp4 Sahara Ghotra cp4 Katty Sauceda, RN RN ay
--- NOTE | 2024-06-19 23:08 | ER ---
Nurse's Notes [facility] Name: Scott Wells Age: 54 yrs Sex: Male : 1970 Arrival Date: 06/19/2024 Time: 19:16 Bed 15 Private MD: Diagnosis: Acute viral gastroenteritis, acute abdominal pain, elevated liver enzymes, elevated blood sugar Presentation: 06/19 19:32 Chief complaint: Patient states: cough, fever, body aches, and vomiting that started cp4 yesterday. Coronavirus screen: Client denies travel out of the [place] in the last 14 days. At this time, the client does not indicate any symptoms associated with coronavirus-19. Ebola Screen: Patient negative for fever greater than or equal to 101.5 degrees Fahrenheit, and additional compatible Ebola Virus Disease symptoms Patient denies exposure to infectious person. Patient denies travel to an Ebola-affected area in the 21 days before illness onset. No symptoms or risks identified at this time. Initial Sepsis Screen: Does the patient meet any 2 criteria? HR > 90 bpm. No. Patient's initial sepsis screen is negative. Does the patient have a suspected source of infection? No. Patient's initial sepsis screen is negative. Risk Assessment: Do you want to hurt yourself or someone else? Patient reports no desire to harm self or others. Onset of symptoms was June 18, 2024. 19:32 Method Of Arrival: Ambulatory cp4 19:32 Acuity: NATALIE 3 cp4 Triage Assessment: 19:34 General: Appears in no apparent distress. uncomfortable, Behavior is calm, cooperative, cp4 appropriate for age. Pain: Complains of pain in body aches. GI: Reports nausea, vomiting. Historical: - Allergies: 19:34 Keflex; cp4 19:34 PENICILLINS; cp4 - Home Meds: 19:34 carvedilol 12.5 mg Oral tab 1 tab 2 times per day [Active]; lisinopril 40 mg Oral tab 1 cp4 tab once daily [Active]; - PMHx: 19:34 Hypertension; cp4 - PSHx: 19:34 lymph node removed; cp4 - Immunization history:: Adult Immunizations up to date. - Infectious Disease History:: Denies. - Social history:: Smoking status: Patient denies any tobacco usage or history of. - Family history:: not pertinent. Screenin:30 [facility] ED Fall Risk Assessment (Adult) History of falling in the last 3 months, ay including since admission No falls in past 3 months (0 pts) Confusion or Disorientation No (0 pts) Intoxicated or Sedated No (0 pts) Impaired Gait No (0 pts) Mobility Assist Device Used No (0 pt) Altered Elimination No (0 pt) Score/Fall Risk Level 0 - 2 = Low Risk Oriented to surroundings, Maintained a safe environment, Educated pt \T\ family on fall prevention, incl call for assistance when getting out of bed. Abuse screen: Denies threats or abuse. Nutritional screening: No deficits noted. Tuberculosis screening: No symptoms or risk factors identified. Assessment: 19:30 General: Appears in no apparent distress. uncomfortable, Behavior is calm, cooperative. ay Pain: Complains of pain in right lower quadrant Pain currently is 10 out of 10 on a pain scale. Neuro: Level of Consciousness is awake, alert, obeys commands, Oriented to person, place, time, situation, [employer] are equal bilaterally Speech is normal. Cardiovascular: Denies chest pain, Capillary refill < 3 seconds. Respiratory: Airway is patent Respiratory effort is even, labored, Respiratory pattern is regular, symmetrical. GI: Abdomen is obese, Abd is soft X 4 quads Abdomen is tender to palpation in right lower quadrant. : No signs and/or symptoms were reported regarding the genitourinary system. EENT: Throat is clear. Derm: No signs and/or symptoms reported regarding the dermatologic system. Vital Signs: 19:30 BP 139 / 75; Pulse 108; Resp 20; Temp 98.2; Pulse Ox 97% on 2 lpm NC; ay 19:32 BP 155 / 89; Pulse 112; Resp 20; Temp 98.5; Pulse Ox 98% ; Weight 129.27 kg; Height 5 cp4 ft. 9 in. ; Pain 10/10; 20:00 BP 139 / 77; Pulse 107; Resp 20; Pulse Ox 98% ; ay 20:15 BP 147 / 77; Pulse 106; Resp 21; Pulse Ox 97% ; ay 20:30 BP 132 / 89; Pulse 113; Resp 19; Pulse Ox 98% ; ay 23:00 BP 135 / 85; Pulse 96; Resp 18; Pulse Ox 97% ; ay 19:32 Body Mass Index 42.09 (129.27 kg, 175.26 cm) cp4 19:32 Pain Scale: Adult cp4 [place] Coma Score: 06/20 00:21 Eye Response: spontaneous(4). Motor Response: obeys commands(6). Verbal Response: sp4 oriented(5). Total: 15. ED Course: 06/19 19:18 Patient arrived in ED. [id number] 19:21 Josue Olivera MD is Attending Physician. sp4 19:30 Patient has correct armband on for positive identification. Placed in gown. Bed in low ay position. Call light in reach. Side rails up X2. Adult w/ patient. Provided Education on: plan of care. 19:30 Inserted saline lock: 20 gauge in right antecubital area, using aseptic technique. ay 19:34 Triage completed. cp4 19:34 Arm band placed on right wrist. Patient placed in waiting room. cp4 20:15 Katty Sauceda RN is Primary Nurse. ay 20:58 Influenza Screen (a \T\ B) Sent. ay 20:59 Urinalysis w/ reflexes Sent. ay 20:59 Lipase Sent. ay 20:59 CMP Sent. ay 20:59 CBC with Diff Sent. ay 21:34 CT Abd/Pelvis - IV Contrast Only In Process Unspecified. EDMS 23:38 IV discontinued, intact, bleeding controlled, No redness/swelling at site. Pressure ay dressing applied. Administered Medications: 20:58 Drug: Ketorolac IVP 30 mg IVP once Route: IVP; Site: right antecubital; ay 23:35 Follow up: Response: No adverse reaction ay 20:58 Drug: NS 0.9% IV 1000 ml IV at 1000 ml once; to be given as a bolus over 60 minutes ay Route: IV; Rate: 1000 ml; Site: right antecubital; 23:34 Follow up: Response: No adverse reaction; IV Status: Completed infusion; IV Intake: ay 1000ml 23:34 Follow up: IV Status: Completed infusion; IV Intake: 1000ml ay 23:35 Follow up: Response: No adverse reaction; IV Status: Completed infusion; IV Intake: ay 1000ml 20:58 Drug: Famotidine IVP 20 mg IVP once; dilute with 10 mL 0.9% NaCl; give over 2 minutes ay Route: IVP; Site: right antecubital; 23:34 Follow up: Response: No adverse reaction ay 20:59 Drug: Ondansetron IVP 8 mg IVP once; over 2 minutes Route: IVP; Site: right antecubital;ay 23:37 Follow up: Response: No adverse reaction ay 20:59 Drug: metoCLOPramide IVP 10 mg IVP once; over 1 to 2 minutes Route: IVP; Site: right ay antecubital; 23:36 Follow up: Response: No adverse reaction ay 21: Drug: NS 0.9% IV 1000 ml IV at 1 bolus Per protocol; to be given as a bolus over 60 ay minutes Route: IV; Rate: 1 bolus; Site: right antecubital; 23:37 Follow up: Response: No adverse reaction ay 23:40 Follow up: IV Status: Completed infusion; IV Intake: 1000ml ay 21: Drug: morphine IVP or IV 8 mg IVP once over 4 mins Route: IVP; Infused Over: 4 mins; ay Site: right antecubital; 23:36 Follow up: Response: No adverse reaction ay 23:31 Drug: Ibuprofen PO 800 mg PO once Route: PO; ay 23:34 Follow up: Response: Medication administered at discharge. ay 23:31 Drug: Promethazine PO 25 mg PO once Route: PO; ay 23:33 Follow up: Response: Medication administered at discharge. ay 23:31 Drug: Acetaminophen PO 1000 mg PO once Route: PO; ay 23:33 Follow up: Response: Medication administered at discharge. ay Intake: 23:34 IV: 1000ml; Total: 1000ml. ay 23:34 IV: 1000ml; Total: 2000ml. ay 23:35 IV: 1000ml; Total: 3000ml. ay 23:40 IV: 1000ml; Total: 4000ml. ay Outcome: 23:07 Discharge ordered by sp4 23:38 Discharged to home ambulatory, ay 23:38 Condition: stable 23:38 Discharge instructions given to patient, Instructed on discharge instructions, follow up and referral plans. medication usage, Demonstrated understanding of instructions, follow-up care, medications, Prescriptions given X 4, 23:39 Patient left the ED. ay Signatures: Dispatcher [employer] EDMS Nancy Boateng Sergey, MD MD sp4 Sahara Ghotra cp4 Sohail Awudu, RN RN ay
[2024-06-19] MEDS ORDERED: PROMETHAZINE 25 MG TABLET ONE (23:22)
[2024-06-19] MEDS ORDERED: ACETAMINOPHEN 500 MG TAB ONE (23:22)
[2024-06-19] MEDS ORDERED: IBUPROFEN 400 MG TAB ONE (23:22)
[2024-06-19 23:47] VITALS: TEMP 98.5
[2024-06-19 23:51] VITALS: BP 132/89; O2SAT 98
== END 2024-06-19 23:39 | disposition home or self-care (01) ==
LOC: ER 19:16
DX: A08.4 Viral intestinal infection, unspecified (principal); R10.9 Unspecified abdominal pain; R73.9 Hyperglycemia, unspecified; R74.8 Abnormal levels of other serum enzymes; I10 Essential (primary) hypertension; Z79.899 Other long term (current) drug therapy; Z88.0 Allergy status to penicillin; Z88.1 Allergy status to other antibiotic agents
CPT/HCPCS: 36415; 74177; 80053; 81003; 83690; 85025; 87804; 96361; 96374; 96375; 99284; J2405; J2765; J7030; Q0169; Q9967